=== PATIENT | female | born 1960 | race Caucasian/White ===

== ENCOUNTER 2016-06-13 14:17 | Outpatient (CLI) | payer OTHER ==
[2016-06-13 15:02] LABS: INR-International Normal Ratio 2.3; Prothrombin Time 25.5 SEC (12.0-14.7)
== END 2016-06-13 14:18 | disposition home or self-care (01) ==
LOC: MADLAB 14:17
PROVIDERS: ATTEND Nurse Practitioner
DX: Z48.812 Encounter for surgical aftercare following surgery on the circulatory system (principal); Z95.2 Presence of prosthetic heart valve
CPT/HCPCS: 36415; 85610

== ENCOUNTER 2016-08-01 10:38 | Outpatient (CLI) | payer OTHER ==
[2016-08-01 11:05] LABS: INR-International Normal Ratio 2.8; Prothrombin Time 29.1 SEC (12.0-14.7)
== END 2016-08-01 10:39 | disposition home or self-care (01) ==
LOC: MADLAB 10:38
PROVIDERS: ATTEND Nurse Practitioner
DX: Z95.2 Presence of prosthetic heart valve (principal)
CPT/HCPCS: 36415; 85610

== ENCOUNTER 2016-08-13 11:26 | Outpatient (CLI) | payer OTHER ==
[2016-08-13 12:25] LABS: Prothrombin Time 39.4 SEC (12.0-14.7)
[2016-08-13 12:34] LABS: INR-International Normal Ratio 4.2
== END 2016-08-13 11:27 | disposition home or self-care (01) ==
LOC: MADLAB 11:26
PROVIDERS: ATTEND Nurse Practitioner
DX: Z48.812 Encounter for surgical aftercare following surgery on the circulatory system (principal); Z95.2 Presence of prosthetic heart valve
CPT/HCPCS: 36415; 85610

== ENCOUNTER 2016-08-29 14:08 | Outpatient (CLI) | payer OTHER ==
[2016-08-29 14:39] LABS: Prothrombin Time 22.3 SEC (12.0-14.7)
== END 2016-08-29 14:09 | disposition home or self-care (01) ==
LOC: MADLAB 14:08
PROVIDERS: ATTEND Nurse Practitioner
DX: Z48.812 Encounter for surgical aftercare following surgery on the circulatory system (principal); Z95.2 Presence of prosthetic heart valve
CPT/HCPCS: 36415; 85610

== ENCOUNTER 2016-09-23 12:51 | Outpatient (CLI) | payer OTHER ==
[2016-09-23 13:32] LABS: INR-International Normal Ratio 1.6; Prothrombin Time 19.1 SEC (12.0-14.7)
== END 2016-09-23 12:52 | disposition home or self-care (01) ==
LOC: MADLAB 12:51
PROVIDERS: ATTEND Nurse Practitioner
DX: Z48.812 Encounter for surgical aftercare following surgery on the circulatory system (principal); Z95.2 Presence of prosthetic heart valve
CPT/HCPCS: 36415; 85610

== ENCOUNTER 2016-10-03 11:26 | Outpatient (CLI) | payer OTHER ==
[2016-10-03 11:54] LABS: INR-International Normal Ratio 1.1; Prothrombin Time 14.9 SEC (12.0-14.7)
== END 2016-10-03 11:27 | disposition home or self-care (01) ==
LOC: MADLAB 11:26
PROVIDERS: ATTEND Nurse Practitioner
DX: Z48.812 Encounter for surgical aftercare following surgery on the circulatory system (principal); Z95.2 Presence of prosthetic heart valve
CPT/HCPCS: 36415; 85610

== ENCOUNTER 2016-10-30 13:48 | Outpatient (CLI) | payer OTHER ==
[2016-10-30 14:11] LABS: INR-International Normal Ratio 3.4; Prothrombin Time 33.7 SEC (12.0-14.7)
== END 2016-10-30 13:49 | disposition home or self-care (01) ==
LOC: MADLAB 13:48
PROVIDERS: ATTEND Nurse Practitioner
DX: Z48.812 Encounter for surgical aftercare following surgery on the circulatory system (principal); Z95.2 Presence of prosthetic heart valve
CPT/HCPCS: 36415; 85610

== ENCOUNTER 2016-11-20 10:29 | Outpatient (CLI) | payer OTHER ==
[2016-11-20 11:19] LABS: INR-International Normal Ratio 2.8; Prothrombin Time 29.2 SEC (12.0-14.7)
== END 2016-11-20 10:30 | disposition home or self-care (01) ==
LOC: MADLAB 10:29
PROVIDERS: ATTEND Nurse Practitioner
DX: Z95.2 Presence of prosthetic heart valve (principal)
CPT/HCPCS: 36415; 85610

== ENCOUNTER 2016-12-18 13:08 | Outpatient (CLI) | payer OTHER ==
[2016-12-18 13:31] LABS: INR-International Normal Ratio 1.6; Prothrombin Time 19.2 SEC (12.0-14.7)
== END 2016-12-18 13:09 | disposition home or self-care (01) ==
LOC: MADLAB 13:08
PROVIDERS: ATTEND Nurse Practitioner
DX: Z95.2 Presence of prosthetic heart valve (principal)
CPT/HCPCS: 36415; 85610

== ENCOUNTER 2017-01-23 12:53 | Outpatient (CLI) | payer OTHER ==
[2017-01-23 13:14] LABS: Prothrombin Time 23.6 SEC (12.0-14.7)
== END 2017-01-23 12:54 | disposition home or self-care (01) ==
LOC: MADLAB 12:53
PROVIDERS: ATTEND Nurse Practitioner
DX: Z48.812 Encounter for surgical aftercare following surgery on the circulatory system (principal); Z95.2 Presence of prosthetic heart valve
CPT/HCPCS: 36415; 85610

== ENCOUNTER 2017-03-17 13:39 | Outpatient (CLI) | payer OTHER, SELFPAY ==
[2017-03-17 14:23] LABS: INR-International Normal Ratio 1.8; Prothrombin Time 21.8 SEC (12.0-14.7)
== END 2017-03-17 13:40 | disposition home or self-care (01) ==
LOC: MADLAB 13:39
PROVIDERS: ATTEND Nurse Practitioner
DX: Z48.812 Encounter for surgical aftercare following surgery on the circulatory system (principal); Z95.2 Presence of prosthetic heart valve
CPT/HCPCS: 36415; 85610

== ENCOUNTER 2017-05-14 13:12 | Outpatient (CLI) | payer OTHER ==
[2017-05-14 13:34] LABS: Prothrombin Time 22.9 SEC (12.0-14.7)
== END 2017-05-14 13:13 | disposition home or self-care (01) ==
LOC: MADLAB 13:12
PROVIDERS: ATTEND Nurse Practitioner
DX: Z48.812 Encounter for surgical aftercare following surgery on the circulatory system (principal); Z95.2 Presence of prosthetic heart valve
CPT/HCPCS: 36415; 85610

== ENCOUNTER 2017-06-16 13:17 | Outpatient (CLI) | payer MEDICARE ==
[2017-06-16 13:43] LABS: INR-International Normal Ratio 3.2; Prothrombin Time 33.8 SEC (12.0-14.7)
== END 2017-06-16 13:18 | disposition home or self-care (01) ==
LOC: MADLAB 13:17
PROVIDERS: ATTEND Nurse Practitioner
DX: Z48.812 Encounter for surgical aftercare following surgery on the circulatory system (principal); Z95.2 Presence of prosthetic heart valve
CPT/HCPCS: 36415; 85610

== ENCOUNTER 2017-07-15 12:55 | Outpatient (CLI) | payer MEDICARE ==
[2017-07-15 13:20] LABS: INR-International Normal Ratio 1.6; Prothrombin Time 19.6 SEC (12.0-14.7)
== END 2017-07-15 12:56 | disposition home or self-care (01) ==
LOC: MADLAB 12:55
PROVIDERS: ATTEND Nurse Practitioner
DX: Z48.812 Encounter for surgical aftercare following surgery on the circulatory system (principal); Z95.2 Presence of prosthetic heart valve
CPT/HCPCS: 36415; 85610

== ENCOUNTER 2017-07-22 11:13 | Outpatient (CLI) | payer MEDICARE ==
[2017-07-22 11:40] LABS: INR-International Normal Ratio 2.1; Prothrombin Time 24.4 SEC (12.0-14.7)
== END 2017-07-22 11:14 | disposition home or self-care (01) ==
LOC: MADLAB 11:13
PROVIDERS: ATTEND Nurse Practitioner
DX: Z48.812 Encounter for surgical aftercare following surgery on the circulatory system (principal); Z95.2 Presence of prosthetic heart valve
CPT/HCPCS: 36415; 85610

== ENCOUNTER 2017-09-13 11:55 | Emergency (ER) | payer MEDICARE ==
[~2017-09-13 11:55] MED LIST: Sodium Chloride Irrig Solution 250 ML BOT ONE
[2017-09-13] MEDS ORDERED: Lidocaine 2% w/Epinephrine 1:200K 20 ML VIAL ONE (12:41)
[2017-09-13] MEDS ORDERED: Bacitracin Zinc 1 Packet ONE (13:06)
[2017-09-13] MEDS ORDERED: Cephalexin 500 MG CAP ONE (13:07)
== END 2017-09-13 13:30 | disposition home or self-care (01) ==
LOC: MADERS 11:55
DX: S61.412A Laceration without foreign body of left hand, initial encounter (principal); E03.9 Hypothyroidism, unspecified; E78.5 Hyperlipidemia, unspecified; I10 Essential (primary) hypertension; F32.9 Major depressive disorder, single episode, unspecified; Z87.891 Personal history of nicotine dependence; Z79.82 Long term (current) use of aspirin; Z79.899 Other long term (current) drug therapy; Z79.52 Long term (current) use of systemic steroids; Z79.01 Long term (current) use of anticoagulants; W22.09XA Striking against other stationary object, initial encounter
CPT/HCPCS: 12002

== ENCOUNTER 2017-09-17 11:29 | Outpatient (CLI) | payer MEDICARE ==
[2017-09-17 11:57] LABS: INR-International Normal Ratio 2.8; Prothrombin Time 30.4 SEC (12.0-14.7)
== END 2017-09-17 11:30 | disposition home or self-care (01) ==
LOC: MADLAB 11:29
PROVIDERS: ATTEND Nurse Practitioner
DX: Z48.812 Encounter for surgical aftercare following surgery on the circulatory system (principal); Z95.2 Presence of prosthetic heart valve
CPT/HCPCS: 36415; 85610

== ENCOUNTER 2017-10-09 10:49 | Outpatient (CLI) | payer MEDICARE ==
[2017-10-09 11:09] LABS: INR-International Normal Ratio 2.8; Prothrombin Time 30.5 SEC (12.0-14.7)
== END 2017-10-09 10:50 | disposition home or self-care (01) ==
LOC: MADLAB 10:49
PROVIDERS: ATTEND Nurse Practitioner
DX: Z48.812 Encounter for surgical aftercare following surgery on the circulatory system (principal); Z95.2 Presence of prosthetic heart valve
CPT/HCPCS: 36415; 85610

== ENCOUNTER 2017-11-12 13:10 | Outpatient (CLI) | payer MEDICARE ==
[2017-11-12 13:43] LABS: INR-International Normal Ratio 2.3; Prothrombin Time 26.5 SEC (12.0-14.7)
== END 2017-11-12 13:11 | disposition home or self-care (01) ==
LOC: MADLAB 13:10
PROVIDERS: ATTEND Nurse Practitioner
DX: Z48.812 Encounter for surgical aftercare following surgery on the circulatory system (principal); Z95.2 Presence of prosthetic heart valve
CPT/HCPCS: 36415; 85610

== ENCOUNTER 2017-12-08 12:35 | Outpatient (CLI) | payer MEDICARE ==
[2017-12-08 13:07] LABS: INR-International Normal Ratio 2.5; Prothrombin Time 26.8 SEC (12.0-14.7)
== END 2017-12-08 12:36 | disposition home or self-care (01) ==
LOC: MADLAB 12:35
PROVIDERS: ATTEND Nurse Practitioner
DX: Z48.812 Encounter for surgical aftercare following surgery on the circulatory system (principal); Z95.2 Presence of prosthetic heart valve
CPT/HCPCS: 36415; 85610

== ENCOUNTER 2017-12-23 11:09 | Outpatient (CLI) | payer MEDICARE ==
[2017-12-23 11:34] LABS: INR-International Normal Ratio 3.2
== END 2017-12-23 11:10 | disposition home or self-care (01) ==
LOC: MADLAB 11:09
PROVIDERS: ATTEND Nurse Practitioner
DX: Z51.81 Encounter for therapeutic drug level monitoring (principal); Z95.2 Presence of prosthetic heart valve; Z79.01 Long term (current) use of anticoagulants
CPT/HCPCS: 36415; 85610

== ENCOUNTER 2018-01-29 11:01 | Outpatient (CLI) | payer MEDICARE ==
[2018-01-29 11:40] LABS: INR-International Normal Ratio 2.5; Prothrombin Time 26.8 SEC (12.0-14.7)
== END 2018-01-29 11:02 | disposition home or self-care (01) ==
LOC: MADLAB 11:01
PROVIDERS: ATTEND Nurse Practitioner
DX: Z48.812 Encounter for surgical aftercare following surgery on the circulatory system (principal); Z95.2 Presence of prosthetic heart valve
CPT/HCPCS: 36415; 85610

== ENCOUNTER 2018-02-25 12:00 | Outpatient (CLI) | payer MEDICARE ==
[2018-02-25 13:24] LABS: INR-International Normal Ratio 3.4; Prothrombin Time 34.1 SEC (12.0-14.7)
== END 2018-02-25 12:01 | disposition home or self-care (01) ==
LOC: MADLAB 12:00
PROVIDERS: ATTEND Nurse Practitioner
DX: Z51.81 Encounter for therapeutic drug level monitoring (principal); Z95.2 Presence of prosthetic heart valve; Z79.01 Long term (current) use of anticoagulants
CPT/HCPCS: 36415; 85610

== ENCOUNTER 2018-03-09 11:44 | Outpatient (CLI) | payer MEDICARE ==
[2018-03-09 11:59] LABS: INR-International Normal Ratio 3.1; Prothrombin Time 31.6 SEC (12.0-14.7)
== END 2018-03-09 11:45 | disposition home or self-care (01) ==
LOC: MADLAB 11:44
PROVIDERS: ATTEND Nurse Practitioner
DX: Z51.81 Encounter for therapeutic drug level monitoring (principal); Z95.2 Presence of prosthetic heart valve; Z79.01 Long term (current) use of anticoagulants
CPT/HCPCS: 36415; 85610

== ENCOUNTER 2018-03-27 17:32 | Emergency (ER) | payer MEDICARE ==
[~2018-03-27 17:32] MED LIST changes: +Sodium Chloride 0.9% 1,000 ML BAG ONE; -Sodium Chloride Irrig Solution 250 ML BOT ONE
[2018-03-27 18:14] LABS: Hemoglobin 9.3 g/dL (12.0-16.0)
[2018-03-27 18:21] LABS: INR-International Normal Ratio 2.5
== END 2018-03-27 19:59 | disposition home or self-care (01) ==
LOC: MADERS 17:32
DX: K62.5 Hemorrhage of anus and rectum (principal); D64.9 Anemia, unspecified; E78.5 Hyperlipidemia, unspecified; I10 Essential (primary) hypertension; Z87.891 Personal history of nicotine dependence; Z79.899 Other long term (current) drug therapy; Z79.01 Long term (current) use of anticoagulants; Z79.82 Long term (current) use of aspirin
CPT/HCPCS: 36415; 82274; 85014; 85018; 85610; 96360; 96361; J7050

== ENCOUNTER 2018-04-27 13:15 | Outpatient (CLI) | payer MEDICARE ==
[2018-04-27 13:43] LABS: INR-International Normal Ratio 2.7; Prothrombin Time 28.6 SEC (12.0-14.7)
== END 2018-04-27 13:16 | disposition home or self-care (01) ==
LOC: MADLAB 13:15
PROVIDERS: ATTEND Nurse Practitioner
DX: Z51.81 Encounter for therapeutic drug level monitoring (principal); Z95.2 Presence of prosthetic heart valve; Z79.01 Long term (current) use of anticoagulants
CPT/HCPCS: 36415; 85610

== ENCOUNTER 2018-05-11 13:02 | Outpatient (CLI) | payer MEDICARE ==
[2018-05-11 13:24] LABS: INR-International Normal Ratio 2.8; Prothrombin Time 29.6 SEC (12.0-14.7)
== END 2018-05-11 13:03 | disposition home or self-care (01) ==
LOC: MADLAB 13:02
PROVIDERS: ATTEND Nurse Practitioner
DX: Z51.81 Encounter for therapeutic drug level monitoring (principal); Z95.2 Presence of prosthetic heart valve; Z79.01 Long term (current) use of anticoagulants
CPT/HCPCS: 36415; 85610

== ENCOUNTER 2018-07-28 13:25 | Outpatient (CLI) | payer MEDICARE ==
[2018-07-28 13:59] LABS: Prothrombin Time 51.9 SEC (12.0-14.7)
[2018-07-28 14:46] LABS: INR-International Normal Ratio 5.8
== END 2018-07-28 13:26 | disposition home or self-care (01) ==
LOC: MADLAB 13:25
PROVIDERS: ATTEND Nurse Practitioner
DX: Z51.81 Encounter for therapeutic drug level monitoring (principal); Z95.2 Presence of prosthetic heart valve; Z79.01 Long term (current) use of anticoagulants
CPT/HCPCS: 36415; 85610

== ENCOUNTER 2018-08-04 11:04 | Outpatient (CLI) | payer MEDICARE ==
[2018-08-04 11:49] LABS: INR-International Normal Ratio 1.9; Prothrombin Time 21.7 SEC (12.0-14.7)
== END 2018-08-04 11:05 | disposition home or self-care (01) ==
LOC: MADLAB 11:04
PROVIDERS: ATTEND Nurse Practitioner
DX: Z51.81 Encounter for therapeutic drug level monitoring (principal); Z95.2 Presence of prosthetic heart valve; Z79.01 Long term (current) use of anticoagulants
CPT/HCPCS: 36415; 85610

== ENCOUNTER 2018-08-24 13:14 | Outpatient (CLI) | payer MEDICARE ==
[2018-08-24 13:41] LABS: Prothrombin Time 71.4 SEC (12.0-14.7)
[2018-08-24 14:14] LABS: INR-International Normal Ratio 8.7
== END 2018-08-24 13:15 | disposition home or self-care (01) ==
LOC: MADLAB 13:14
PROVIDERS: ATTEND Nurse Practitioner Family
DX: Z51.81 Encounter for therapeutic drug level monitoring (principal); Z95.2 Presence of prosthetic heart valve; Z79.01 Long term (current) use of anticoagulants
CPT/HCPCS: 36415; 85610

== ENCOUNTER 2018-08-25 16:26 | Emergency (ER) | payer MEDICARE ==
[~2018-08-25 16:26] MED LIST changes: +Sodium Chloride 0.9% 100 ML BAG ONE
[2018-08-25 17:15] LABS: Prothrombin Time 50.2 SEC (12.0-14.7)
--- NOTE | 2018-08-25 17:23 | RAD ---
FEXAM: Portable chest PROVIDED CLINICAL HISTORY: Dyspnea COMPARISON: 05/25/2009 FINDINGS: Cardiac and mediastinal silhouette is within normal limits. No focal consolidation, pleural fluid or pneumothorax evident. Median sternotomy changes are noted. Prosthetic cardiac valve noted. IMPRESSION: No evidence for an acute cardiopulmonary process.
[2018-08-25 17:26] LABS: ALT (SGPT) Less than 7 U/L (8-55); AST (SGOT) 9 U/L (5-34); Albumin 3.7 g/dL (3.5-5.0); Alkaline Phosphatase 60 U/L (40-150); Anion Gap 16 mmol/L (10-20); BUN (Urea Nitrogen) 44 mg/dL (9.8-20.1); Bilirubin, Total 0.4 mg/dL (0.2-1.2); Calc. Creatinine Clearance 0 mL/min (70-130); Calcium 9.8 mg/dL (7.8-10.44); Carbon Dioxide 24 mmol/L (22-29); Chloride 103 mmol/L (98-107); Estimated GFR-MDRD 22; Globulin 2.7 g/dL (2.4-3.5); Glucose 126 mg/dL (70-105); Potassium 4.3 mmol/L (3.5-5.1); Protein, Total 6.4 g/dL (6.0-8.3); Sodium 139 mmol/L (136-145)
[2018-08-25 17:35] LABS: INR-International Normal Ratio 5.6
[2018-08-25 17:44] LABS: CKMB 1.4 ng/mL (0-6.6)
[2018-08-25 17:46] LABS: #Basophils 0.1 thou/uL (0.0-0.2); #Eosinphils 0.1 thou/uL (0.0-0.7); #Lymphocytes 1.4 thou/uL (1.20-3.40); #Monocytes 0.7 thou/uL (0.11-0.59); #Neutrophils 6.1 thou/uL (1.40-6.50); %Basophils 1.5 % (0.0-1.0); %Eosinophils 1.6 % (0.0-10.0); %Lymphocytes 16.1 % (21.0-51.0); %Monocytes 8.4 % (0.0-10.0); %Neutrophils 72.5 % (42.0-75.0); Hemoglobin 6.2 g/dL (12.0-16.0); Mean Corpuscular HGB CONC 29.2 g/dL (32.0-36.0); Mean Corpuscular Hemoglobin 22.6 pg (27.0-31.0); Mean Corpuscular Volume 77.4 fL (78.0-98.0); Mean Platelet Volume 8.8 fL (7.4-10.4); Platelet Count 313 thou/uL (130-400); RBC Distribution Width 19.5 % (11.5-14.5); Red Blood Cell (RBC) Count 2.75 mill/uL (4.20-5.40); White Blood Cell (WBC) Count 8.4 thou/uL (4.8-10.8)
[2018-08-25 17:47] LABS: Hypochromia MODERATE=16-30 cells (100X) (0-5/hpf); MDiff Complete? YES; Polychromasia SLIGHT = 2-3 cells (100X) (0-2/hpf)
[2018-08-25] MEDS ORDERED: Phytonadione 10 MG/ML AMP ONE (19:36)
[2018-08-25] MEDS ORDERED: Pantoprazole 40 MG VIAL ONE (19:36)
[2018-08-25 19:57] LABS: Bilirubin Negative (Negative); Blood, Urine Trace (Negative); Clarity Clear (Clear); Glucose, Urine (Dipstick) Negative (Negative); Leukocyte Negative (Negative); Nitrite Negative (Negative); Protein, Urine (Dipstick) Negative (Neg-Trace); Urobilinogen 0.2 mg/dL (0.2-1.0); pH, Urine 5.5 (5.0-9.0)
[2018-08-25 20:03] LABS: Bacteria/HPF None Seen HPF (None Seen); RBC/HPF 0-3 HPF (0-3); Squamous Epithelial 0-3 HPF (0-3); WBC/HPF 0-3 HPF (0-3)
== END 2018-08-25 20:22 | disposition short-term general hospital (02) ==
LOC: MADERS 16:26
DX: D64.9 Anemia, unspecified (principal); K92.2 Gastrointestinal hemorrhage, unspecified; E03.9 Hypothyroidism, unspecified; I10 Essential (primary) hypertension; F32.9 Major depressive disorder, single episode, unspecified; Z87.891 Personal history of nicotine dependence
CPT/HCPCS: 36430; 71045; 80053; 82274; 82553; 83880; 84484; 85025; 85610; 86850; 86900; 86901; 86920; 93005; 96361; 96372; 96374; 99291; P9016; 36415; 81003; 81015; C9113; J3430; J7050

== ENCOUNTER 2018-08-31 13:30 | Outpatient (CLI) | payer MEDICARE ==
[2018-08-31 14:05] LABS: INR-International Normal Ratio 1.6; Prothrombin Time 19.2 SEC (12.0-14.7)
== END 2018-08-31 13:31 | disposition home or self-care (01) ==
LOC: MADLAB 13:30
PROVIDERS: ATTEND Nurse Practitioner Family
DX: Z51.81 Encounter for therapeutic drug level monitoring (principal); Z95.2 Presence of prosthetic heart valve; Z79.01 Long term (current) use of anticoagulants
CPT/HCPCS: 36415; 85610

== ENCOUNTER 2018-09-21 13:21 | Outpatient (CLI) | payer MEDICARE ==
[2018-09-21 14:27] LABS: Prothrombin Time 47.9 SEC (12.0-14.7)
[2018-09-21 14:28] LABS: INR-International Normal Ratio 5.2
== END 2018-09-21 13:22 | disposition home or self-care (01) ==
LOC: MADLAB 13:21
PROVIDERS: ATTEND Nurse Practitioner Family
DX: Z51.81 Encounter for therapeutic drug level monitoring (principal); Z95.2 Presence of prosthetic heart valve; Z79.01 Long term (current) use of anticoagulants
CPT/HCPCS: 36415; 85610

== ENCOUNTER 2018-10-01 13:15 | Outpatient (CLI) | payer MEDICARE ==
[2018-10-01 13:43] LABS: INR-International Normal Ratio 3.5; Prothrombin Time 34.7 SEC (12.0-14.7)
== END 2018-10-01 13:16 | disposition home or self-care (01) ==
LOC: MADLAB 13:15
PROVIDERS: ATTEND Nurse Practitioner Family
DX: Z51.81 Encounter for therapeutic drug level monitoring (principal); Z95.2 Presence of prosthetic heart valve; Z79.01 Long term (current) use of anticoagulants
CPT/HCPCS: 36415; 85610

== ENCOUNTER 2018-10-15 13:30 | Outpatient (CLI) | payer MEDICARE ==
[2018-10-15 13:55] LABS: INR-International Normal Ratio 3.1; Prothrombin Time 32.3 SEC (12.0-14.7)
== END 2018-10-15 13:31 | disposition home or self-care (01) ==
LOC: MADLAB 13:30
PROVIDERS: ATTEND Nurse Practitioner Family
DX: Z51.81 Encounter for therapeutic drug level monitoring (principal); Z95.2 Presence of prosthetic heart valve; Z79.01 Long term (current) use of anticoagulants
CPT/HCPCS: 36415; 85610

== ENCOUNTER 2018-11-03 13:14 | Outpatient (CLI) | payer MEDICARE ==
[2018-11-03 13:51] LABS: INR-International Normal Ratio 3.9; Prothrombin Time 38.1 SEC (12.0-14.7)
== END 2018-11-03 13:15 | disposition home or self-care (01) ==
LOC: MADLAB 13:14
PROVIDERS: ATTEND Nurse Practitioner Family
DX: Z48.812 Encounter for surgical aftercare following surgery on the circulatory system (principal); Z95.2 Presence of prosthetic heart valve
CPT/HCPCS: 36415; 85610

== ENCOUNTER 2018-12-09 13:11 | Outpatient (CLI) | payer MEDICARE ==
[2018-12-09 13:49] LABS: INR-International Normal Ratio 3.5; Prothrombin Time 34.9 SEC (12.0-14.7)
== END 2018-12-09 13:12 | disposition home or self-care (01) ==
LOC: MADLAB 13:11
PROVIDERS: ATTEND Nurse Practitioner Family
DX: Z48.812 Encounter for surgical aftercare following surgery on the circulatory system (principal); Z95.2 Presence of prosthetic heart valve
CPT/HCPCS: 36415; 85610

== ENCOUNTER 2019-01-13 13:25 | Outpatient (CLI) | payer MEDICARE ==
[2019-01-13 13:46] LABS: INR-International Normal Ratio 2.5
== END 2019-01-13 13:26 | disposition home or self-care (01) ==
LOC: MADLAB 13:25
PROVIDERS: ATTEND Internal Medicine Hematology & Oncology
DX: Z48.812 Encounter for surgical aftercare following surgery on the circulatory system (principal); Z95.2 Presence of prosthetic heart valve
CPT/HCPCS: 36415; 85610

== ENCOUNTER 2019-02-01 12:47 | Outpatient (CLI) | payer MEDICARE ==
[2019-02-01 13:29] LABS: INR-International Normal Ratio 3.8
== END 2019-02-01 12:48 | disposition home or self-care (01) ==
LOC: MADLAB 12:47
PROVIDERS: ATTEND Internal Medicine Hematology & Oncology
DX: Z48.812 Encounter for surgical aftercare following surgery on the circulatory system (principal); Z95.2 Presence of prosthetic heart valve
CPT/HCPCS: 36415; 85610

== ENCOUNTER 2019-02-09 12:50 | Outpatient (CLI) | payer MEDICARE ==
[2019-02-09 13:36] LABS: INR-International Normal Ratio 1.8; Prothrombin Time 20.8 SEC (12.0-14.7)
== END 2019-02-09 12:51 | disposition home or self-care (01) ==
LOC: MADLAB 12:50
PROVIDERS: ATTEND Internal Medicine Hematology & Oncology
DX: Z48.812 Encounter for surgical aftercare following surgery on the circulatory system (principal)
CPT/HCPCS: 36415; 85610

== ENCOUNTER 2019-03-01 12:56 | Outpatient (CLI) | payer MEDICARE ==
[2019-03-01 13:31] LABS: INR-International Normal Ratio 2.7; Prothrombin Time 28.8 SEC (12.0-14.7)
== END 2019-03-01 12:57 | disposition home or self-care (01) ==
LOC: MADLAB 12:56
PROVIDERS: ATTEND Internal Medicine Hematology & Oncology
DX: Z48.812 Encounter for surgical aftercare following surgery on the circulatory system (principal); Z95.2 Presence of prosthetic heart valve
CPT/HCPCS: 85610

== ENCOUNTER 2019-03-31 10:02 | Outpatient (CLI) | payer MEDICARE ==
[2019-03-31 11:03] LABS: INR-International Normal Ratio 3.3; Prothrombin Time 33.5 SEC (12.0-14.7)
== END 2019-03-31 10:03 | disposition home or self-care (01) ==
LOC: MADLAB 10:02
PROVIDERS: ATTEND Internal Medicine Hematology & Oncology
DX: Z48.812 Encounter for surgical aftercare following surgery on the circulatory system (principal); Z95.2 Presence of prosthetic heart valve
CPT/HCPCS: 36415; 85610

== ENCOUNTER 2019-06-14 12:33 | Outpatient (CLI) | payer MEDICARE ==
[2019-06-14 13:09] LABS: Prothrombin Time 40.1 SEC (12.0-14.7)
[2019-06-14 13:12] LABS: INR-International Normal Ratio 4.2
== END 2019-06-14 12:34 | disposition home or self-care (01) ==
LOC: MADLAB 12:33
PROVIDERS: ATTEND Internal Medicine Hematology & Oncology
DX: Z48.812 Encounter for surgical aftercare following surgery on the circulatory system (principal); Z95.2 Presence of prosthetic heart valve
CPT/HCPCS: 36415; 85610

== ENCOUNTER 2019-07-05 13:34 | Emergency (ER) | payer MEDICARE ==
[2019-07-05] MEDS ORDERED: Phytonadione 10 MG/ML AMP ONE (14:43)
[2019-07-05 14:45] LABS: PTT 82.4 SEC (22.9-36.1); Prothrombin Time 90.5 SEC (12.0-14.7)
[2019-07-05 14:47] LABS: #Basophils 0.1 thou/uL (0.0-0.2); #Eosinphils 0.2 thou/uL (0.0-0.7); #Lymphocytes 2.2 thou/uL (1.20-3.40); #Monocytes 0.4 thou/uL (0.11-0.59); #Neutrophils 3.9 thou/uL (1.40-6.50); %Eosinophils 2.8 % (0.0-10.0); %Lymphocytes 32.8 % (21.0-51.0); %Monocytes 6.3 % (0.0-10.0); %Neutrophils 57.2 % (42.0-75.0); Anisocytosis SLIGHT = 6-15 cells (100X) (0-5/hpf); Elliptocytes SLIGHT = 2-5 cells (100X) (0-1/hpf); Hemoglobin 9.3 g/dL (12.0-16.0); Hypochromia SLIGHT = 6-15 cells (100X) (0-5/hpf); MDiff Complete? YES; Mean Corpuscular HGB CONC 29.1 g/dL (32.0-36.0); Mean Corpuscular Hemoglobin 26.3 pg (27.0-31.0); Mean Corpuscular Volume 90.5 fL (78.0-98.0); Mean Platelet Volume 9.7 fL (7.4-10.4); Platelet Count 247 thou/uL (130-400); Poikilocytosis SLIGHT = 6-15 cells (100X) (0-5/hpf); RBC Distribution Width 18.4 % (11.5-14.5); Red Blood Cell (RBC) Count 3.52 mill/uL (4.20-5.40); Target Cells SLIGHT = 2-5 cells (100X) (0-1/hpf); Tear Drops SLIGHT = 2-5 cells (100X) (0-1/hpf); White Blood Cell (WBC) Count 6.9 thou/uL (4.8-10.8)
[2019-07-05 14:53] LABS: ALT (SGPT) 7 U/L (8-55); AST (SGOT) 13 U/L (5-34); Albumin 3.4 g/dL (3.5-5.0); Alkaline Phosphatase 50 U/L (40-110); Anion Gap 14 mmol/L (10-20); BUN (Urea Nitrogen) 36 mg/dL (9.8-20.1); Bilirubin, Total 0.5 mg/dL (0.2-1.2); Calc. Creatinine Clearance 0 mL/min (70-130); Carbon Dioxide 24 mmol/L (22-29); Chloride 107 mmol/L (98-107); Estimated GFR-MDRD 20; Globulin 2.5 g/dL (2.4-3.5); Glucose 92 mg/dL (70-105); Potassium 4.2 mmol/L (3.5-5.1); Protein, Total 5.9 g/dL (6.0-8.3); Sodium 141 mmol/L (136-145)
== END 2019-07-05 15:38 | disposition home or self-care (01) ==
LOC: MADERS 13:34
DX: T45.511A Poisoning by anticoagulants, accidental (unintentional), initial encounter (principal); N17.9 Acute kidney failure, unspecified; D64.89 Other specified anemias; I10 Essential (primary) hypertension; E03.9 Hypothyroidism, unspecified; F32.9 Major depressive disorder, single episode, unspecified; E78.00 Pure hypercholesterolemia, unspecified; Z87.891 Personal history of nicotine dependence; Z79.899 Other long term (current) drug therapy; Z79.01 Long term (current) use of anticoagulants
CPT/HCPCS: 36415; 80053; 85025; 85610; 85730; 99284; J3430

== ENCOUNTER 2019-07-06 09:42 | Outpatient (CLI) | payer MEDICARE ==
[2019-07-06 10:19] LABS: INR-International Normal Ratio 1.9; Prothrombin Time 21.7 SEC (12.0-14.7)
== END 2019-07-06 09:43 | disposition home or self-care (01) ==
LOC: MADLAB 09:42
PROVIDERS: ATTEND Internal Medicine Hematology & Oncology
DX: Z51.81 Encounter for therapeutic drug level monitoring (principal); Z95.2 Presence of prosthetic heart valve; Z79.01 Long term (current) use of anticoagulants
CPT/HCPCS: 36415; 85610

== ENCOUNTER 2019-07-12 13:51 | Outpatient (CLI) | payer MEDICARE ==
[2019-07-12 14:17] LABS: INR-International Normal Ratio 2.8; Prothrombin Time 29.1 SEC (12.0-14.7)
== END 2019-07-12 13:52 | disposition home or self-care (01) ==
LOC: MADLAB 13:51
PROVIDERS: ATTEND Internal Medicine Hematology & Oncology
DX: Z48.812 Encounter for surgical aftercare following surgery on the circulatory system (principal); Z95.2 Presence of prosthetic heart valve
CPT/HCPCS: 36415; 85610

== ENCOUNTER 2019-07-21 13:35 | Outpatient (CLI) | payer MEDICARE ==
[2019-07-21 14:10] LABS: INR-International Normal Ratio 2.1
== END 2019-07-21 13:36 | disposition home or self-care (01) ==
LOC: MADLAB 13:35
PROVIDERS: ATTEND Internal Medicine Hematology & Oncology
DX: Z51.81 Encounter for therapeutic drug level monitoring (principal); Z95.2 Presence of prosthetic heart valve; Z79.01 Long term (current) use of anticoagulants
CPT/HCPCS: 36415; 85610

== ENCOUNTER 2019-08-11 12:35 | Outpatient (CLI) | payer MEDICARE ==
[2019-08-11 12:58] LABS: Prothrombin Time 13.6 SEC (12.0-14.7)
== END 2019-08-11 12:36 | disposition home or self-care (01) ==
LOC: MADLAB 12:35
PROVIDERS: ATTEND Internal Medicine Hematology & Oncology
DX: Z48.812 Encounter for surgical aftercare following surgery on the circulatory system (principal); Z95.2 Presence of prosthetic heart valve
CPT/HCPCS: 36415; 85610

== ENCOUNTER 2019-10-19 09:30 | Outpatient (CLI) | payer MEDICARE ==
[2019-10-19 10:06] LABS: INR-International Normal Ratio 2.8; Prothrombin Time 28.9 sec (12.0-14.7)
== END 2019-10-19 09:31 | disposition home or self-care (01) ==
LOC: MADLAB 09:30
PROVIDERS: ATTEND Internal Medicine Hematology & Oncology
DX: Z48.812 Encounter for surgical aftercare following surgery on the circulatory system (principal); Z95.2 Presence of prosthetic heart valve
CPT/HCPCS: 36415; 85610

== ENCOUNTER 2019-11-16 14:09 | Outpatient (CLI) | payer MEDICARE ==
[2019-11-16 14:32] LABS: INR-International Normal Ratio 1.6; Prothrombin Time 19.3 sec (12.0-14.7)
== END 2019-11-16 14:10 | disposition home or self-care (01) ==
LOC: MADLAB 14:09
PROVIDERS: ATTEND Internal Medicine Cardiovascular Disease
DX: Z48.812 Encounter for surgical aftercare following surgery on the circulatory system (principal); Z95.2 Presence of prosthetic heart valve
CPT/HCPCS: 36415; 85610

== ENCOUNTER 2019-11-30 13:22 | Outpatient (CLI) | payer MEDICARE ==
[2019-11-30 13:48] LABS: INR-International Normal Ratio 1.6; Prothrombin Time 19.1 sec (12.0-14.7)
== END 2019-11-30 13:23 | disposition home or self-care (01) ==
LOC: MADLAB 13:22
PROVIDERS: ATTEND Internal Medicine Cardiovascular Disease
DX: Z48.812 Encounter for surgical aftercare following surgery on the circulatory system (principal); Z95.2 Presence of prosthetic heart valve
CPT/HCPCS: 36415; 85610

== ENCOUNTER 2019-12-06 13:13 | Outpatient (CLI) | payer MEDICARE ==
[2019-12-06 13:46] LABS: Prothrombin Time 22.7 sec (12.0-14.7)
== END 2019-12-06 13:14 | disposition home or self-care (01) ==
LOC: MADLABBHPM 13:13
PROVIDERS: ATTEND Internal Medicine Cardiovascular Disease
DX: Z48.812 Encounter for surgical aftercare following surgery on the circulatory system (principal); Z95.2 Presence of prosthetic heart valve
CPT/HCPCS: 36415; 85610

== ENCOUNTER 2020-01-18 12:20 | Outpatient (CLI) | payer MEDICARE ==
[2020-01-18 12:46] LABS: INR-International Normal Ratio 2.3; Prothrombin Time 24.9 sec (12.0-14.7)
== END 2020-01-18 12:21 | disposition home or self-care (01) ==
LOC: MADLAB 12:20
PROVIDERS: ATTEND Internal Medicine Cardiovascular Disease
DX: Z48.812 Encounter for surgical aftercare following surgery on the circulatory system (principal); Z95.2 Presence of prosthetic heart valve
CPT/HCPCS: 36415; 85610

== ENCOUNTER 2020-02-21 12:50 | Outpatient (CLI) | payer MEDICARE ==
[2020-02-21 13:17] LABS: INR-International Normal Ratio 1.6; Prothrombin Time 18.9 sec (12.0-14.7)
== END 2020-02-21 12:51 | disposition home or self-care (01) ==
LOC: MADLAB 12:50
PROVIDERS: ATTEND Internal Medicine Cardiovascular Disease
DX: Z48.812 Encounter for surgical aftercare following surgery on the circulatory system (principal); Z95.2 Presence of prosthetic heart valve
CPT/HCPCS: 36415; 85610

== ENCOUNTER 2020-04-03 12:29 | Emergency (ER) | payer MEDICARE ==
[~2020-04-03 12:29] MED LIST changes: -Sodium Chloride 0.9% 100 ML BAG ONE
[2020-04-03] MEDS ORDERED: Ondansetron ODT 4 MG TAB ONE (12:56)
[2020-04-03 13:18] LABS: #Basophils 0.1 thou/uL (0.0-0.2); #Eosinphils 0.2 thou/uL (0.0-0.7); #Monocytes 0.8 thou/uL (0.11-0.59); #Neutrophils 6.4 thou/uL (1.40-6.50); %Basophils 0.9 % (0.0-1.0); %Eosinophils 1.5 % (0.0-10.0); %Lymphocytes 28.5 % (21.0-51.0); %Monocytes 7.7 % (0.0-10.0); %Neutrophils 61.5 % (42.0-75.0); Hemoglobin 11.2 g/dL (12.0-16.0); Mean Corpuscular HGB CONC 29.4 g/dL (32.0-36.0); Mean Corpuscular Hemoglobin 25.5 pg (27.0-31.0); Mean Corpuscular Volume 86.8 fL (78.0-98.0); Mean Platelet Volume 9.5 fL (7.4-10.4); Platelet Count 277 thou/uL (130-400); RBC Distribution Width 15.6 % (11.5-14.5); Red Blood Cell (RBC) Count 4.39 mill/uL (4.20-5.40); White Blood Cell (WBC) Count 10.4 thou/uL (4.8-10.8)
[2020-04-03 13:24] LABS: INR-International Normal Ratio 1.7; Prothrombin Time 20.1 sec (12.0-14.7)
[2020-04-03 13:33] LABS: ALT (SGPT) 25 U/L (8-55); AST (SGOT) 53 U/L (5-34); Albumin 3.7 g/dL (3.5-5.0); Alkaline Phosphatase 60 U/L (40-110); Anion Gap 15 mmol/L (10-20); BUN (Urea Nitrogen) 39 mg/dL (9.8-20.1); Bilirubin, Total 0.6 mg/dL (0.2-1.2); Calc. Creatinine Clearance 0 mL/min (70-130); Calcium 9.6 mg/dL (7.8-10.44); Carbon Dioxide 24 mmol/L (22-29); Chloride 105 mmol/L (98-107); Estimated GFR-MDRD 19; Globulin 2.9 g/dL (2.4-3.5); Glucose 133 mg/dL (70-105); Potassium 4.1 mmol/L (3.5-5.1); Protein, Total 6.6 g/dL (6.0-8.3); Sodium 140 mmol/L (136-145)
[2020-04-03 13:58] LABS: CKMB 5.9 ng/mL (0-6.6)
[2020-04-03] MEDS ORDERED: Ondansetron PF 4 MG/2 ML Vial ONE (14:28)
== END 2020-04-03 16:45 | disposition home or self-care (01) ==
LOC: MADERS 12:29
DX: R42 Dizziness and giddiness (principal); E03.9 Hypothyroidism, unspecified; E78.00 Pure hypercholesterolemia, unspecified; I10 Essential (primary) hypertension; F32.9 Major depressive disorder, single episode, unspecified; Z79.01 Long term (current) use of anticoagulants; Z79.899 Other long term (current) drug therapy
CPT/HCPCS: 80053; 82553; 84484; 85025; 85610; 93005; 96374; J2405; J7050; Q0162

== ENCOUNTER 2020-04-17 14:29 | Outpatient (CLI) | payer MEDICARE ==
[2020-04-17 14:54] LABS: INR-International Normal Ratio 1.8; Prothrombin Time 21.6 sec (12.0-14.7)
== END 2020-04-17 14:30 | disposition home or self-care (01) ==
LOC: MADLAB 14:29
PROVIDERS: ATTEND Internal Medicine Cardiovascular Disease
DX: Z51.81 Encounter for therapeutic drug level monitoring (principal); Z95.2 Presence of prosthetic heart valve; Z79.01 Long term (current) use of anticoagulants
CPT/HCPCS: 36415; 85610

== ENCOUNTER 2020-05-16 12:50 | Outpatient (CLI) | payer MEDICARE ==
[2020-05-16 13:14] LABS: INR-International Normal Ratio 2.5; Prothrombin Time 27.7 sec (12.0-14.7)
== END 2020-05-16 12:51 | disposition home or self-care (01) ==
LOC: MADLAB 12:50
PROVIDERS: ATTEND Internal Medicine Cardiovascular Disease
DX: Z48.812 Encounter for surgical aftercare following surgery on the circulatory system (principal); Z95.2 Presence of prosthetic heart valve
CPT/HCPCS: 36415; 85610

== ENCOUNTER 2020-05-30 14:38 | Outpatient (CLI) | payer MEDICARE ==
[2020-05-30 15:04] LABS: INR-International Normal Ratio 2.4; Prothrombin Time 26.5 sec (12.0-14.7)
== END 2020-05-30 14:39 | disposition home or self-care (01) ==
LOC: MADLAB 14:38
PROVIDERS: ATTEND Internal Medicine Cardiovascular Disease
DX: Z48.812 Encounter for surgical aftercare following surgery on the circulatory system (principal); Z95.2 Presence of prosthetic heart valve
CPT/HCPCS: 36415; 85610

== ENCOUNTER 2020-06-28 11:58 | Outpatient (CLI) | payer OTHER ==
[2020-06-28 12:30] LABS: INR-International Normal Ratio 2.5; Prothrombin Time 27.5 sec (12.0-14.7)
== END 2020-06-28 11:59 | disposition home or self-care (01) ==
LOC: MADLAB 11:58
DX: Z48.812 Encounter for surgical aftercare following surgery on the circulatory system (principal); Z95.2 Presence of prosthetic heart valve
CPT/HCPCS: 36415; 85610

== ENCOUNTER 2020-07-17 10:15 | Emergency (ER) | payer MEDICARE, OTHER ==
[~2020-07-17 10:15] MED LIST changes: +Sodium Chloride 0.9% 100 ML BAG ONE; +Sodium Chloride 0.9% 500 ML BAG ONE
[2020-07-17] MEDS ORDERED: Sulfameth/Trimethoprim DS 800-160mg TAB ONE (11:06)
[2020-07-17 11:14] LABS: ALT (SGPT) 164 U/L (8-55); AST (SGOT) 265 U/L (5-34); Alkaline Phosphatase 77 U/L (40-110); Anion Gap 17 mmol/L (10-20); BUN (Urea Nitrogen) 48 mg/dL (9.8-20.1); Bilirubin, Total 1.2 mg/dL (0.2-1.2); Calc. Creatinine Clearance 0 mL/min (70-130); Calcium 9.4 mg/dL (7.8-10.44); Carbon Dioxide 22 mmol/L (22-29); Chloride 94 mmol/L (98-107); Globulin 3.2 g/dL (2.4-3.5); Glucose 125 mg/dL (70-105); Potassium 4.1 mmol/L (3.5-5.1); Protein, Total 6.2 g/dL (6.0-8.3); Sodium 129 mmol/L (136-145)
[2020-07-17 11:25] LABS: Anisocytosis SLIGHT = 6-15 cells (100X) (0-5/hpf); Band 6 % (5-11); Hemoglobin 10.8 g/dL (12.0-16.0); Hypochromia SLIGHT = 6-15 cells (100X) (0-5/hpf); Lymphocytes 10 % (21-51); MDiff Complete? YES; Mean Corpuscular HGB CONC 31.9 g/dL (32.0-36.0); Mean Corpuscular Volume 81.6 fL (78.0-98.0); Mean Platelet Volume 9.8 fL (7.4-10.4); Monocytes 2 % (0-10); Neutrophil 82 % (42-75); Platelet Count 278 thou/uL (130-400); Platelet Morphology Comment Appears Adequate; RBC Distribution Width 16.8 % (11.5-14.5); Red Blood Cell (RBC) Count 4.14 mill/uL (4.20-5.40); White Blood Cell (WBC) Count 13.3 thou/uL (4.8-10.8)
[2020-07-17] MEDS ORDERED: Sodium Chloride 0.9% 250 ML 250 ML ONE (11:32)
[2020-07-17 12:32] LABS: Bilirubin Small (Negative); Blood, Urine Large (Negative); Clarity Slightly Cloudy (Clear); Glucose, Urine (Dipstick) Negative (Negative); Ketone, Urine Negative (Negative); Leukocyte Small (Negative); Nitrite Negative (Negative); Protein, Urine (Dipstick) 30 mg/dL (Neg-Trace); Specific Gravity, Urine 1.015 (1.005-1.030)
[2020-07-17 12:38] LABS: Bacteria/HPF 2+ HPF (None Seen)
[2020-07-17] MEDS ORDERED: Acetaminophen 500 MG TAB ONE (19:01)
[2020-07-17 19:39] LABS: Anion Gap 15 mmol/L (10-20); BUN (Urea Nitrogen) 38 mg/dL (9.8-20.1); CK (CPK) 4999 U/L (29-168); Calc. Creatinine Clearance 0 mL/min (70-130); Calcium 8.2 mg/dL (7.8-10.44); Carbon Dioxide 18 mmol/L (22-29); Chloride 103 mmol/L (98-107); Glucose 70 mg/dL (70-105); Potassium 3.7 mmol/L (3.5-5.1); Sodium 132 mmol/L (136-145)
[2020-07-17] MEDS ORDERED: Cefepime 1 GM VIAL ONE (20:44)
[2020-07-17] MEDS ORDERED: Pantoprazole 40 MG VIAL ONE (20:48)
[2020-07-17] MEDS ORDERED: Norepinephrine 4 MG/4 ML VIAL ONE ×2 (21:23→21:25)
--- NOTE | 2020-07-17 22:23 | RAD ---
Chest AP view INDICATION: Status post central line placement COMPARISON: August 25, 2018 chest radiograph FINDINGS: Lungs: The lung bases are excluded Cardiac silhouette: Post-CABG changes stable Pulmonary vasculature: Normal Pleural spaces: The costophrenic angles are excluded. No definite pneumothorax is evident within the upper hemithoraces. Upper abdomen: No abnormality seen. Osseous structures: No acute osseous abnormality. Additional findings: There is a right IJ central venous catheter with the catheter tip terminating i n the region of the distal SVC. IMPRESSION: Limitation exam as above. Central venous catheter as above.
== END 2020-07-17 22:28 | disposition short-term general hospital (02) ==
LOC: MADERS 10:15
DX: A41.9 Sepsis, unspecified organism (principal); R65.21 Severe sepsis with septic shock; L03.211 Cellulitis of face; N28.9 Disorder of kidney and ureter, unspecified; E87.1 Hypo-osmolality and hyponatremia; M62.82 Rhabdomyolysis; E78.00 Pure hypercholesterolemia, unspecified; E03.9 Hypothyroidism, unspecified; I10 Essential (primary) hypertension; Z79.899 Other long term (current) drug therapy; Z79.01 Long term (current) use of anticoagulants
CPT/HCPCS: 36415; 36556; 71045; 80053; 81003; 81015; 82550; 83605; 85025; 86140; 87040; 96365; 96366; 96367; 96375; C9113; J0692; J3370; J3490; J7030; J7050; J7070

== ENCOUNTER 2020-07-24 18:31 | Inpatient (IN) | payer MEDICARE ==
[2020-07-24] MEDS ORDERED: Senokot S 8.6-50 MG TAB PO PRN (20:15)
[2020-07-24] MEDS ORDERED: Acetaminophen 325 MG TAB PO PRN (20:15)
[2020-07-24] MEDS ORDERED: Ondansetron ODT 4 MG TAB PO PRN (20:15)
[2020-07-24] MEDS: Mycophenolate 250 MG CAP PO SCH (21:04)
[2020-07-24] MEDS: cycloSPORINE, Modified 25 MG CAP PO SCH (21:04)
[2020-07-24] MEDS: Amoxicillin/Potassium Clav 875 MG TAB PO SCH (21:04)
[2020-07-24] MEDS: cycloSPORINE, Modified 100 MG CAP PO SCH (21:04)
[2020-07-24] MEDS: traZODone HCl 50 MG TAB PO SCH (21:06)
[2020-07-24 21:29] VITALS: BMI 24.0
[2020-07-25] MEDS: Levothyroxine Sodium 75 MCG TAB PO SCH (05:10)
[2020-07-25 05:38] LABS: INR-International Normal Ratio 2.5; Prothrombin Time 27.4 sec (12.0-14.7)
[2020-07-25 05:39] LABS: PTT 55.8 sec (22.9-36.1)
[2020-07-25] MEDS ORDERED: WARFARIN SODIUM 3 MG PO SCH (09:00)
[2020-07-25] MEDS: Mycophenolate 250 MG CAP PO SCH ×2 (09:24→21:28)
[2020-07-25] MEDS: Fenofibrate Nanocrystallized 145 MG TAB PO SCH (09:24)
[2020-07-25] MEDS: predniSONE 5 MG TAB PO SCH (09:24)
[2020-07-25] MEDS: Amiodarone 200 MG TAB PO SCH (09:25)
[2020-07-25] MEDS: Escitalopram Oxalate 10 mg Tablet PO SCH (09:25)
[2020-07-25] MEDS: cycloSPORINE, Modified 25 MG CAP PO SCH ×2 (09:26→21:31)
[2020-07-25] MEDS: Atorvastatin Calcium 40 MG TAB PO SCH (09:26)
[2020-07-25] MEDS: Amoxicillin/Potassium Clav 875 MG TAB PO SCH ×2 (09:26→21:33)
[2020-07-25] MEDS: cycloSPORINE, Modified 100 MG CAP PO SCH ×2 (09:26→21:31)
[2020-07-25] MEDS: Warfarin Sodium 1 MG TAB PO SCH (17:18)
[2020-07-25] MEDS: traZODone HCl 50 MG TAB PO SCH (21:33)
[2020-07-26] MEDS: Levothyroxine Sodium 75 MCG TAB PO SCH (05:38)
[2020-07-26 05:51] LABS: INR-International Normal Ratio 2.6; Prothrombin Time 28.6 sec (12.0-14.7)
[2020-07-26] MEDS: Atorvastatin Calcium 40 MG TAB PO SCH (08:30)
[2020-07-26] MEDS: predniSONE 5 MG TAB PO SCH (08:30)
[2020-07-26] MEDS: Fenofibrate Nanocrystallized 145 MG TAB PO SCH (08:30)
[2020-07-26] MEDS: cycloSPORINE, Modified 25 MG CAP PO SCH ×2 (08:30→21:22)
[2020-07-26] MEDS: Amiodarone 200 MG TAB PO SCH (08:30)
[2020-07-26] MEDS: cycloSPORINE, Modified 100 MG CAP PO SCH ×2 (08:31→21:22)
[2020-07-26] MEDS: Mycophenolate 250 MG CAP PO SCH ×2 (08:31→21:22)
[2020-07-26] MEDS: Amoxicillin/Potassium Clav 875 MG TAB PO SCH ×2 (08:31→21:22)
[2020-07-26] MEDS: Escitalopram Oxalate 10 mg Tablet PO SCH (08:31)
[2020-07-26] MEDS: Warfarin Sodium 1 MG TAB PO SCH (17:03)
[2020-07-26] MEDS: traZODone HCl 50 MG TAB PO SCH (21:22)
[2020-07-27 05:39] LABS: Hemoglobin 8.7 g/dL (12.0-16.0); Platelet Count 330 thou/uL (130-400)
[2020-07-27 05:40] LABS: INR-International Normal Ratio 2.7
[2020-07-27] MEDS: Levothyroxine Sodium 75 MCG TAB PO SCH (05:56)
[2020-07-27] MEDS: Escitalopram Oxalate 10 mg Tablet PO SCH (08:34)
[2020-07-27] MEDS: Magnesium Oxide 400 MG TAB PO SCH (08:35)
[2020-07-27] MEDS: cycloSPORINE, Modified 100 MG CAP PO SCH ×2 (08:35→21:46)
[2020-07-27] MEDS: cycloSPORINE, Modified 25 MG CAP PO SCH ×2 (08:35→21:46)
[2020-07-27] MEDS: Amiodarone 200 MG TAB PO SCH (08:35)
[2020-07-27] MEDS: predniSONE 5 MG TAB PO SCH (08:35)
[2020-07-27] MEDS: Mycophenolate 250 MG CAP PO SCH ×2 (08:36→21:46)
[2020-07-27] MEDS: Warfarin Sodium 1 MG TAB PO SCH (17:43)
[2020-07-27] MEDS: traZODone HCl 50 MG TAB PO SCH (21:46)
[2020-07-28] MEDS: Levothyroxine Sodium 75 MCG TAB PO SCH (05:33)
[2020-07-28 05:56] LABS: INR-International Normal Ratio 2.2; Prothrombin Time 25.1 sec (12.0-14.7)
[2020-07-28] MEDS: Mycophenolate 250 MG CAP PO SCH ×2 (10:46→20:31)
[2020-07-28] MEDS: Magnesium Oxide 400 MG TAB PO SCH (10:46)
[2020-07-28] MEDS: cycloSPORINE, Modified 100 MG CAP PO SCH ×2 (10:46→20:32)
[2020-07-28] MEDS: cycloSPORINE, Modified 25 MG CAP PO SCH ×2 (10:46→20:32)
[2020-07-28] MEDS: Amiodarone 200 MG TAB PO SCH (10:47)
[2020-07-28] MEDS: Escitalopram Oxalate 10 mg Tablet PO SCH (10:47)
[2020-07-28] MEDS: predniSONE 5 MG TAB PO SCH (10:47)
[2020-07-28] MEDS: Warfarin Sodium 1 MG TAB PO SCH (17:57)
[2020-07-28] MEDS: traZODone HCl 50 MG TAB PO SCH (20:32)
[2020-07-29] MEDS: Levothyroxine Sodium 75 MCG TAB PO SCH (05:14)
[2020-07-29 06:07] LABS: INR-International Normal Ratio 1.8; Prothrombin Time 21.1 sec (12.0-14.7)
[2020-07-29] MEDS: Mycophenolate 250 MG CAP PO SCH ×2 (09:08→20:34)
[2020-07-29] MEDS: Magnesium Oxide 400 MG TAB PO SCH (09:08)
[2020-07-29] MEDS: cycloSPORINE, Modified 100 MG CAP PO SCH ×2 (09:08→20:33)
[2020-07-29] MEDS: cycloSPORINE, Modified 25 MG CAP PO SCH ×2 (09:08→20:34)
[2020-07-29] MEDS: predniSONE 5 MG TAB PO SCH (09:09)
[2020-07-29] MEDS: Amiodarone 200 MG TAB PO SCH (09:09)
[2020-07-29] MEDS: Escitalopram Oxalate 10 mg Tablet PO SCH (09:09)
[2020-07-29] MEDS: Warfarin Sodium 1 MG TAB PO SCH (17:59)
[2020-07-29] MEDS: traZODone HCl 50 MG TAB PO SCH (20:34)
[2020-07-30] MEDS: Levothyroxine Sodium 75 MCG TAB PO SCH (05:33)
[2020-07-30 05:40] LABS: INR-International Normal Ratio 1.6
[2020-07-30 05:45] LABS: Hemoglobin 9.1 g/dL (12.0-16.0); Platelet Count 278 thou/uL (130-400)
[2020-07-30] MEDS: Mycophenolate 250 MG CAP PO SCH ×2 (09:39→20:18)
[2020-07-30] MEDS: cycloSPORINE, Modified 100 MG CAP PO SCH ×2 (09:40→20:18)
[2020-07-30] MEDS: cycloSPORINE, Modified 25 MG CAP PO SCH ×2 (09:40→20:18)
[2020-07-30] MEDS: Escitalopram Oxalate 10 mg Tablet PO SCH (09:40)
[2020-07-30] MEDS: Magnesium Oxide 400 MG TAB PO SCH (09:40)
[2020-07-30] MEDS: Amiodarone 200 MG TAB PO SCH (09:40)
[2020-07-30] MEDS: predniSONE 5 MG TAB PO SCH (09:40)
[2020-07-30] MEDS: Warfarin Sodium 1 MG TAB PO SCH (17:19)
[2020-07-30] MEDS: traZODone HCl 50 MG TAB PO SCH (20:18)
[2020-07-31 05:50] LABS: INR-International Normal Ratio 1.6; Prothrombin Time 18.9 sec (12.0-14.7)
[2020-07-31] MEDS: Levothyroxine Sodium 75 MCG TAB PO SCH (05:54)
[2020-07-31] MEDS: Mycophenolate 250 MG CAP PO SCH ×2 (08:58→21:48)
[2020-07-31] MEDS: cycloSPORINE, Modified 100 MG CAP PO SCH ×2 (08:59→21:48)
[2020-07-31] MEDS: cycloSPORINE, Modified 25 MG CAP PO SCH ×2 (08:59→21:48)
[2020-07-31] MEDS: predniSONE 5 MG TAB PO SCH (08:59)
[2020-07-31] MEDS: Escitalopram Oxalate 10 mg Tablet PO SCH (08:59)
[2020-07-31] MEDS: Amiodarone 200 MG TAB PO SCH (08:59)
[2020-07-31] MEDS: Magnesium Oxide 400 MG TAB PO SCH (09:00)
[2020-07-31] MEDS ORDERED: Warfarin Sodium 5 MG TAB PO SCH (17:00)
[2020-07-31] MEDS: traZODone HCl 50 MG TAB PO SCH (21:48)
[2020-08-01] MEDS: Levothyroxine Sodium 75 MCG TAB PO SCH (05:49)
[2020-08-01 06:08] LABS: INR-International Normal Ratio 1.4; Prothrombin Time 17.9 sec (12.0-14.7)
[2020-08-01 08:59] VITALS: BP 127/54; TEMP 98.4
[2020-08-01] MEDS: predniSONE 5 MG TAB PO SCH (09:46)
[2020-08-01] MEDS: Mycophenolate 250 MG CAP PO SCH (09:46)
[2020-08-01] MEDS: Escitalopram Oxalate 10 mg Tablet PO SCH (09:46)
[2020-08-01] MEDS: Amiodarone 200 MG TAB PO SCH (09:47)
[2020-08-01] MEDS: cycloSPORINE, Modified 100 MG CAP PO SCH (09:47)
[2020-08-01] MEDS: cycloSPORINE, Modified 25 MG CAP PO SCH (09:47)
[2020-08-01] MEDS: Magnesium Oxide 400 MG TAB PO SCH (09:47)
== END 2020-08-01 15:24 | disposition home or self-care (01) | DRG 92 ==
LOC: MADMS 18:31 → UNDOADMIN 18:31
PROVIDERS: ADMIT Family Medicine; ATTEND Family Medicine
DX: R26.9 Unspecified abnormalities of gait and mobility (principal); N17.9 Acute kidney failure, unspecified; L02.31 Cutaneous abscess of buttock; Z94.0 Kidney transplant status; R53.81 Other malaise; Z79.01 Long term (current) use of anticoagulants; I12.9 Hypertensive chronic kidney disease with stage 1 through stage 4 chronic kidney disease, or unspecified chronic kidney disease; N18.9 Chronic kidney disease, unspecified; E03.9 Hypothyroidism, unspecified; K21.9 Gastro-esophageal reflux disease without esophagitis; R26.89 Other abnormalities of gait and mobility; K64.4 Residual hemorrhoidal skin tags; E78.5 Hyperlipidemia, unspecified; F41.9 Anxiety disorder, unspecified; F32.9 Major depressive disorder, single episode, unspecified; Z95.1 Presence of aortocoronary bypass graft; Z95.2 Presence of prosthetic heart valve; Z88.1 Allergy status to other antibiotic agents; Z88.5 Allergy status to narcotic agent
CPT/HCPCS: 36415; 85014; 85018; 85049; 85610; 85730; J7502; J7512; J7515; J7517

== ENCOUNTER 2020-08-07 12:23 | Outpatient (CLI) | payer MEDICARE ==
[2020-08-07 13:13] LABS: INR-International Normal Ratio 1.9; Prothrombin Time 22.5 sec (12.0-14.7)
== END 2020-08-07 12:24 | disposition home or self-care (01) ==
LOC: MADLAB 12:23
PROVIDERS: ATTEND Internal Medicine Cardiovascular Disease
DX: Z48.812 Encounter for surgical aftercare following surgery on the circulatory system (principal); Z95.2 Presence of prosthetic heart valve
CPT/HCPCS: 36415; 85610

== ENCOUNTER 2020-08-15 23:36 | Emergency (ER) | payer MEDICARE ==
[2020-08-15] MEDS ORDERED: Acetaminophen 500 MG TAB ONE (23:50)
[2020-08-15 23:54] LABS: Bilirubin Negative (Negative); Blood, Urine Moderate (Negative); Clarity Clear (Clear); Glucose, Urine (Dipstick) Negative (Negative); Ketone, Urine Negative (Negative); Leukocyte Trace (Negative); Nitrite Positive (Negative); Protein, Urine (Dipstick) 100 mg/dL (Neg-Trace); Urobilinogen 0.2 mg/dL (Less than 2); pH, Urine 5.5 (5.0-9.0)
[2020-08-15] MEDS ORDERED: cefTRIAXone\\ROCEPHIN 2 GM VIAL ONE (23:56)
[2020-08-15] MEDS ORDERED: Lidocaine 1% 20 ML MDV ONE (23:56)
[2020-08-15] MEDS ORDERED: cefTRIAXone\\ROCEPHIN 1 GM VIAL ONE (23:57)
[2020-08-16 00:15] LABS: Bacteria/HPF 3+ HPF (None Seen)
== END 2020-08-16 00:50 | disposition home or self-care (01) ==
LOC: MADERS 23:36
DX: N39.0 Urinary tract infection, site not specified (principal); E03.9 Hypothyroidism, unspecified; E78.00 Pure hypercholesterolemia, unspecified; I10 Essential (primary) hypertension
CPT/HCPCS: 51701; 81003; 81015; 87077; 87086; 87186; 96372; J0696

== ENCOUNTER 2020-09-18 10:56 | Outpatient (CLI) | payer MEDICARE ==
[2020-09-18 11:27] LABS: Prothrombin Time 13.6 sec (12.0-14.7)
== END 2020-09-18 10:57 | disposition home or self-care (01) ==
LOC: MADLAB 10:56
DX: Z48.812 Encounter for surgical aftercare following surgery on the circulatory system (principal); Z95.2 Presence of prosthetic heart valve
CPT/HCPCS: 36415; 85610

== ENCOUNTER 2020-10-10 13:03 | Outpatient (CLI) | payer MEDICARE ==
[2020-10-10 13:36] LABS: Prothrombin Time 32.2 sec (12.0-14.7)
== END 2020-10-10 13:04 | disposition home or self-care (01) ==
LOC: MADLAB 13:03
PROVIDERS: ATTEND Internal Medicine Cardiovascular Disease
DX: Z48.812 Encounter for surgical aftercare following surgery on the circulatory system (principal); Z95.2 Presence of prosthetic heart valve
CPT/HCPCS: 36415; 85610

== ENCOUNTER 2021-02-12 12:50 | Outpatient (CLI) | payer MEDICARE ==
[2021-02-12 13:33] LABS: INR-International Normal Ratio 1.1; Prothrombin Time 14.4 sec (12.0-14.7)
== END 2021-02-12 12:51 | disposition home or self-care (01) ==
LOC: MADLAB 12:50
PROVIDERS: ATTEND Internal Medicine Cardiovascular Disease
DX: Z48.812 Encounter for surgical aftercare following surgery on the circulatory system (principal); Z95.2 Presence of prosthetic heart valve
CPT/HCPCS: 36415; 85610

== ENCOUNTER 2021-03-07 10:44 | Outpatient (CLI) | payer MEDICARE ==
[2021-03-07 11:09] LABS: Prothrombin Time 41.2 sec (12.0-14.7)
[2021-03-07 11:13] LABS: INR-International Normal Ratio 4.2
== END 2021-03-07 10:45 | disposition home or self-care (01) ==
LOC: MADLAB 10:44
PROVIDERS: ATTEND Internal Medicine Cardiovascular Disease
DX: Z51.81 Encounter for therapeutic drug level monitoring (principal); Z95.2 Presence of prosthetic heart valve; Z79.899 Other long term (current) drug therapy
CPT/HCPCS: 36415; 85610

== ENCOUNTER 2021-05-22 13:03 | Outpatient (CLI) | payer MEDICARE ==
[2021-05-22 14:08] LABS: INR-International Normal Ratio 5.2
[2021-05-22 14:19] LABS: Prothrombin Time 49.2 sec (12.0-14.7)
== END 2021-05-22 13:04 | disposition home or self-care (01) ==
LOC: MADLAB 13:03
PROVIDERS: ATTEND Internal Medicine Cardiovascular Disease
DX: Z51.81 Encounter for therapeutic drug level monitoring (principal); Z95.2 Presence of prosthetic heart valve; Z79.01 Long term (current) use of anticoagulants
CPT/HCPCS: 36415; 85610

== ENCOUNTER 2021-06-20 11:06 | Outpatient (CLI) | payer MEDICARE ==
[2021-06-20 12:05] LABS: Prothrombin Time 39.7 sec (12.0-14.7)
== END 2021-06-20 11:07 | disposition home or self-care (01) ==
LOC: MADLAB 11:06
PROVIDERS: ATTEND Internal Medicine Cardiovascular Disease
DX: Z48.812 Encounter for surgical aftercare following surgery on the circulatory system (principal); Z95.2 Presence of prosthetic heart valve
CPT/HCPCS: 36415; 85610

== ENCOUNTER 2021-09-26 11:36 | Outpatient (CLI) | payer MEDICARE ==
[2021-09-26 11:54] LABS: INR-International Normal Ratio 1.4; Prothrombin Time 17.7 sec (12.0-14.7)
== END 2021-09-26 11:37 | disposition home or self-care (01) ==
LOC: MADLAB 11:36
PROVIDERS: ATTEND Internal Medicine Cardiovascular Disease
DX: Z48.812 Encounter for surgical aftercare following surgery on the circulatory system (principal); Z95.2 Presence of prosthetic heart valve
CPT/HCPCS: 36415; 85610

== ENCOUNTER 2021-12-26 10:28 | Outpatient (CLI) | payer MEDICARE ==
[2021-12-26 11:07] LABS: INR-International Normal Ratio 1.6; Prothrombin Time 19.7 sec (12.0-14.7)
== END 2021-12-26 10:29 | disposition home or self-care (01) ==
LOC: MADLAB 10:28
PROVIDERS: ATTEND Internal Medicine Cardiovascular Disease
DX: Z48.812 Encounter for surgical aftercare following surgery on the circulatory system (principal); Z95.2 Presence of prosthetic heart valve
CPT/HCPCS: 36415; 85610

== ENCOUNTER 2022-01-12 10:37 | Emergency (ER) | payer MEDICARE ==
[2022-01-12] MEDS ORDERED: HYDROcodone/Acetaminophen 5/325 mg Tablet ONE (12:04)
[2022-01-12] MEDS ORDERED: Cephalexin 500 MG CAP ONE (12:04)
== END 2022-01-12 12:13 | disposition home or self-care (01) ==
LOC: MADERS 10:37
DX: L03.115 Cellulitis of right lower limb (principal); I12.9 Hypertensive chronic kidney disease with stage 1 through stage 4 chronic kidney disease, or unspecified chronic kidney disease; N18.9 Chronic kidney disease, unspecified; E03.9 Hypothyroidism, unspecified; E78.00 Pure hypercholesterolemia, unspecified; Z77.22 Contact with and (suspected) exposure to environmental tobacco smoke (acute) (chronic); Z85.048 Personal history of other malignant neoplasm of rectum, rectosigmoid junction, and anus; Z79.01 Long term (current) use of anticoagulants; Z79.899 Other long term (current) drug therapy
CPT/HCPCS: 99283

== ENCOUNTER 2022-02-01 12:22 | Emergency (ER) | payer MEDICARE ==
[2022-02-01] MEDS ORDERED: Bacitracin 1 PK ONE (13:05)
[2022-02-01] MEDS ORDERED: HYDROcodone/Acetaminophen 5/325 mg Tablet ONE (13:22)
[2022-02-01] MEDS ORDERED: Cephalexin 500 MG CAP ONE (13:22)
== END 2022-02-01 13:49 | disposition home or self-care (01) ==
LOC: MADERS 12:22
DX: I73.9 Peripheral vascular disease, unspecified (principal); L03.115 Cellulitis of right lower limb; S91.104D Unspecified open wound of right lesser toe(s) without damage to nail, subsequent encounter; I10 Essential (primary) hypertension; E03.9 Hypothyroidism, unspecified; E78.00 Pure hypercholesterolemia, unspecified; Z85.048 Personal history of other malignant neoplasm of rectum, rectosigmoid junction, and anus; Z77.22 Contact with and (suspected) exposure to environmental tobacco smoke (acute) (chronic); Z79.01 Long term (current) use of anticoagulants; Z79.899 Other long term (current) drug therapy; Z95.1 Presence of aortocoronary bypass graft; Z94.0 Kidney transplant status
CPT/HCPCS: 99283

== ENCOUNTER 2022-02-13 10:50 | Outpatient (CLI) | payer MEDICARE ==
[2022-02-13 11:35] LABS: INR-International Normal Ratio 1.8; Prothrombin Time 20.9 sec (12.0-14.7)
== END 2022-02-13 10:51 | disposition home or self-care (01) ==
LOC: MADLAB 10:50
PROVIDERS: ATTEND Internal Medicine Cardiovascular Disease
DX: Z48.812 Encounter for surgical aftercare following surgery on the circulatory system (principal); Z95.2 Presence of prosthetic heart valve
CPT/HCPCS: 36415; 85610

== ENCOUNTER 2022-03-27 20:23 | Inpatient (IN) | payer MEDICARE ==
[2022-03-27] MEDS ORDERED: Senokot S 8.6-50 MG TAB PO PRN (22:07)
[2022-03-27] MEDS: oxyCODONE 5 MG TAB PO PRN (22:56)
[2022-03-28 05:51] LABS: INR-International Normal Ratio 1.6; Prothrombin Time 19.4 sec (12.0-14.7)
[2022-03-28 06:01] LABS: Anion Gap 16 mmol/L (10-20); BUN (Urea Nitrogen) 22 mg/dL (9.8-20.1); Calc. Creatinine Clearance 34 mL/min (70-130); Calcium 8.9 mg/dL (7.8-10.44); Carbon Dioxide 24 mmol/L (23-31); Chloride 99 mmol/L (98-107); Estimated GFR 43; Glucose 94 mg/dL (80-115); Sodium 135 mmol/L (136-145)
[2022-03-28] MEDS: Levothyroxine Sodium 75 MCG TAB PO SCH (06:11)
[2022-03-28] MEDS: Amiodarone 200 MG TAB PO SCH (08:00)
[2022-03-28] MEDS: Ferrous Sulfate 325 MG TAB PO SCH (08:00)
[2022-03-28] MEDS: Famotidine 20 MG TAB PO SCH (08:12)
[2022-03-28] MEDS: predniSONE 5 MG TAB PO SCH (08:12)
[2022-03-28] MEDS: Cholecalciferol 1,000 UNITS (25 MCG) TAB PO SCH (08:12)
[2022-03-28] MEDS: Amlodipine 5 MG TAB PO SCH (08:13)
[2022-03-28] MEDS: Escitalopram Oxalate 10 mg Tablet PO SCH (08:13)
[2022-03-28] MEDS: Gabapentin 100 MG CAP PO SCH ×3 (08:13→20:24)
[2022-03-28] MEDS: cycloSPORINE, Modified 100 MG CAP PO SCH ×2 (08:14→20:25)
[2022-03-28] MEDS: oxyCODONE 5 MG TAB PO PRN ×3 (08:24→20:25)
[2022-03-28] MEDS ORDERED: FLU VACC QS2022-23(6MOS UP)/PF 60 MCG/0.5 ML SYRINGE IM ONE (09:00)
[2022-03-28] MEDS: Atorvastatin Calcium 40 MG TAB PO SCH (09:43)
[2022-03-28] MEDS: Mycophenolate 250 MG CAP PO SCH ×2 (09:43→20:24)
[2022-03-28] MEDS: FENOFIBRATE MICRONIZED 67 MG PO SCH (09:47)
[2022-03-28] MEDS: Acetaminophen 325 MG TAB PO PRN ×2 (10:56→23:49)
[2022-03-28] MEDS ORDERED: tiZANidine HCl 4 MG TAB PO SCH (11:00)
[2022-03-28] MEDS: Warfarin Sodium 5 MG TAB PO SCH (17:06)
[2022-03-28] MEDS: traZODone HCl 50 MG TAB PO SCH (20:26)
[2022-03-28] MEDS: tiZANidine HCl 4 MG TAB PO PRN (23:49)
[2022-03-29] MEDS: Levothyroxine Sodium 75 MCG TAB PO SCH (05:15)
[2022-03-29] MEDS: oxyCODONE 5 MG TAB PO PRN ×3 (05:16→19:26)
[2022-03-29 05:24] LABS: INR-International Normal Ratio 1.7; Prothrombin Time 20.9 sec (12.0-14.7)
[2022-03-29] MEDS: Amiodarone 200 MG TAB PO SCH (08:11)
[2022-03-29] MEDS: predniSONE 5 MG TAB PO SCH (08:12)
[2022-03-29] MEDS: Ferrous Sulfate 325 MG TAB PO SCH (08:12)
[2022-03-29] MEDS: Cholecalciferol 1,000 UNITS (25 MCG) TAB PO SCH (08:13)
[2022-03-29] MEDS: Amlodipine 5 MG TAB PO SCH (08:13)
[2022-03-29] MEDS: Atorvastatin Calcium 40 MG TAB PO SCH (08:13)
[2022-03-29] MEDS: Escitalopram Oxalate 10 mg Tablet PO SCH (08:14)
[2022-03-29] MEDS: cycloSPORINE, Modified 100 MG CAP PO SCH ×2 (08:14→20:06)
[2022-03-29] MEDS: Famotidine 20 MG TAB PO SCH (08:14)
[2022-03-29] MEDS: Mycophenolate 250 MG CAP PO SCH ×2 (08:15→20:07)
[2022-03-29] MEDS: Gabapentin 100 MG CAP PO SCH ×3 (08:15→20:07)
[2022-03-29] MEDS: FENOFIBRATE MICRONIZED 67 MG PO SCH (08:16)
[2022-03-29] MEDS: Warfarin Sodium 5 MG TAB PO SCH (17:05)
[2022-03-29] MEDS: traZODone HCl 50 MG TAB PO SCH (20:07)
[2022-03-30 05:17] LABS: Hemoglobin 7.9 g/dL (12.0-16.0); Platelet Count 414 thou/uL (130-400)
[2022-03-30] MEDS: Levothyroxine Sodium 75 MCG TAB PO SCH (05:22)
[2022-03-30 05:25] LABS: INR-International Normal Ratio 1.7; Prothrombin Time 20.3 sec (12.0-14.7)
[2022-03-30] MEDS: predniSONE 5 MG TAB PO SCH (08:31)
[2022-03-30] MEDS: cycloSPORINE, Modified 100 MG CAP PO SCH ×2 (08:31→20:32)
[2022-03-30] MEDS: Mycophenolate 250 MG CAP PO SCH ×2 (08:31→20:30)
[2022-03-30] MEDS: Cholecalciferol 1,000 UNITS (25 MCG) TAB PO SCH (08:31)
[2022-03-30] MEDS: Ferrous Sulfate 325 MG TAB PO SCH (08:31)
[2022-03-30] MEDS: oxyCODONE 5 MG TAB PO PRN ×3 (08:31→20:31)
[2022-03-30] MEDS: Amiodarone 200 MG TAB PO SCH (08:32)
[2022-03-30] MEDS: Escitalopram Oxalate 10 mg Tablet PO SCH (08:32)
[2022-03-30] MEDS: Gabapentin 100 MG CAP PO SCH ×3 (08:32→20:32)
[2022-03-30] MEDS: Atorvastatin Calcium 40 MG TAB PO SCH (08:33)
[2022-03-30] MEDS: Lantiseptic Ointment 130 GM JAR TOP SCH ×2 (15:17→20:32)
[2022-03-30] MEDS: Warfarin Sodium 5 MG TAB PO SCH (17:21)
[2022-03-30] MEDS: traZODone HCl 50 MG TAB PO SCH (20:32)
[2022-03-30] MEDS: tiZANidine HCl 4 MG TAB PO PRN (23:49)
[2022-03-31] MEDS: oxyCODONE 5 MG TAB PO PRN ×4 (00:01→21:15)
[2022-03-31 05:30] LABS: INR-International Normal Ratio 1.7; Prothrombin Time 20.3 sec (12.0-14.7)
[2022-03-31] MEDS: Levothyroxine Sodium 75 MCG TAB PO SCH (05:35)
[2022-03-31] MEDS: Mycophenolate 250 MG CAP PO SCH ×2 (08:08→21:14)
[2022-03-31] MEDS: Gabapentin 100 MG CAP PO SCH ×3 (08:08→21:14)
[2022-03-31] MEDS: Escitalopram Oxalate 10 mg Tablet PO SCH (08:08)
[2022-03-31] MEDS: Amiodarone 200 MG TAB PO SCH (08:09)
[2022-03-31] MEDS: predniSONE 5 MG TAB PO SCH (08:09)
[2022-03-31] MEDS: Cholecalciferol 1,000 UNITS (25 MCG) TAB PO SCH (08:09)
[2022-03-31] MEDS: cycloSPORINE, Modified 100 MG CAP PO SCH ×2 (08:09→21:14)
[2022-03-31] MEDS: Atorvastatin Calcium 40 MG TAB PO SCH (08:09)
[2022-03-31] MEDS: Ferrous Sulfate 325 MG TAB PO SCH (08:09)
[2022-03-31] MEDS: Lantiseptic Ointment 130 GM JAR TOP SCH ×2 (08:11→21:18)
[2022-03-31] MEDS: tiZANidine HCl 4 MG TAB PO PRN (15:38)
[2022-03-31] MEDS: Warfarin Sodium 2 MG TAB PO SCH (17:00)
[2022-03-31] MEDS: traZODone HCl 50 MG TAB PO SCH (21:15)
[2022-04-01 05:24] LABS: INR-International Normal Ratio 1.7; Prothrombin Time 20.2 sec (12.0-14.7)
[2022-04-01] MEDS: tiZANidine HCl 4 MG TAB PO PRN (05:37)
[2022-04-01] MEDS: oxyCODONE 5 MG TAB PO PRN ×3 (05:37→20:21)
[2022-04-01] MEDS: Levothyroxine Sodium 75 MCG TAB PO SCH (05:45)
[2022-04-01] MEDS: cycloSPORINE, Modified 100 MG CAP PO SCH ×2 (08:23→20:21)
[2022-04-01] MEDS: Amiodarone 200 MG TAB PO SCH (08:23)
[2022-04-01] MEDS: Gabapentin 100 MG CAP PO SCH ×3 (08:23→20:19)
[2022-04-01] MEDS: Cholecalciferol 1,000 UNITS (25 MCG) TAB PO SCH (08:24)
[2022-04-01] MEDS: Mycophenolate 250 MG CAP PO SCH ×2 (08:24→20:19)
[2022-04-01] MEDS: predniSONE 5 MG TAB PO SCH (08:24)
[2022-04-01] MEDS: Escitalopram Oxalate 10 mg Tablet PO SCH (08:24)
[2022-04-01] MEDS: Ferrous Sulfate 325 MG TAB PO SCH (08:24)
[2022-04-01] MEDS: Lantiseptic Ointment 130 GM JAR TOP SCH ×2 (08:25→20:22)
[2022-04-01] MEDS: Atorvastatin Calcium 40 MG TAB PO SCH (08:25)
[2022-04-01] MEDS: Warfarin Sodium 2 MG TAB PO SCH (17:18)
[2022-04-01] MEDS: traZODone HCl 50 MG TAB PO SCH (20:21)
[2022-04-02 05:12] LABS: Hemoglobin 7.7 g/dL (12.0-16.0); Platelet Count 350 thou/uL (130-400)
[2022-04-02 05:23] LABS: Prothrombin Time 23.4 sec (12.0-14.7)
[2022-04-02] MEDS: oxyCODONE 5 MG TAB PO PRN ×3 (05:51→21:03)
[2022-04-02] MEDS: Levothyroxine Sodium 75 MCG TAB PO SCH (05:52)
[2022-04-02] MEDS: Amiodarone 200 MG TAB PO SCH (08:30)
[2022-04-02] MEDS: Gabapentin 100 MG CAP PO SCH ×3 (08:31→21:01)
[2022-04-02] MEDS: cycloSPORINE, Modified 100 MG CAP PO SCH ×2 (08:31→21:01)
[2022-04-02] MEDS: Ferrous Sulfate 325 MG TAB PO SCH ×2 (08:31→16:53)
[2022-04-02] MEDS: predniSONE 5 MG TAB PO SCH (08:32)
[2022-04-02] MEDS: Atorvastatin Calcium 40 MG TAB PO SCH (08:32)
[2022-04-02] MEDS: Escitalopram Oxalate 10 mg Tablet PO SCH (08:32)
[2022-04-02] MEDS: Mycophenolate 250 MG CAP PO SCH ×2 (08:32→21:01)
[2022-04-02] MEDS: Lantiseptic Ointment 130 GM JAR TOP SCH ×2 (08:36→21:02)
[2022-04-02] MEDS: Cholecalciferol 1,000 UNITS (25 MCG) TAB PO SCH (08:42)
[2022-04-02] MEDS: Warfarin Sodium 2 MG TAB PO SCH (16:54)
[2022-04-02] MEDS: traZODone HCl 50 MG TAB PO SCH (21:02)
[2022-04-03 05:47] LABS: INR-International Normal Ratio 1.8; Prothrombin Time 21.7 sec (12.0-14.7)
[2022-04-03] MEDS: Levothyroxine Sodium 75 MCG TAB PO SCH (06:14)
[2022-04-03] MEDS: oxyCODONE 5 MG TAB PO PRN ×3 (08:36→21:41)
[2022-04-03] MEDS: Atorvastatin Calcium 40 MG TAB PO SCH (08:37)
[2022-04-03] MEDS: Gabapentin 100 MG CAP PO SCH ×3 (08:37→21:43)
[2022-04-03] MEDS: predniSONE 5 MG TAB PO SCH (08:37)
[2022-04-03] MEDS: Ferrous Sulfate 325 MG TAB PO SCH ×2 (08:37→17:15)
[2022-04-03] MEDS: cycloSPORINE, Modified 100 MG CAP PO SCH ×2 (08:38→21:41)
[2022-04-03] MEDS: Escitalopram Oxalate 10 mg Tablet PO SCH (08:38)
[2022-04-03] MEDS: Amiodarone 200 MG TAB PO SCH (08:38)
[2022-04-03] MEDS: Mycophenolate 250 MG CAP PO SCH ×2 (08:38→21:41)
[2022-04-03] MEDS: Cholecalciferol 1,000 UNITS (25 MCG) TAB PO SCH (08:38)
[2022-04-03] MEDS: Lantiseptic Ointment 130 GM JAR TOP SCH ×2 (08:48→21:44)
[2022-04-03] MEDS: Warfarin Sodium 2 MG TAB PO SCH (17:16)
[2022-04-03] MEDS: traZODone HCl 50 MG TAB PO SCH (21:42)
[2022-04-04 05:09] LABS: Hemoglobin 7.9 g/dL (12.0-16.0); Platelet Count 344 10x3/uL (130-400)
[2022-04-04 05:19] LABS: INR-International Normal Ratio 1.9; Prothrombin Time 22.8 sec (12.0-14.7)
[2022-04-04] MEDS: Levothyroxine Sodium 75 MCG TAB PO SCH (05:21)
[2022-04-04] MEDS: Amiodarone 200 MG TAB PO SCH (07:54)
[2022-04-04] MEDS: oxyCODONE 5 MG TAB PO PRN ×3 (07:54→20:11)
[2022-04-04] MEDS: Ferrous Sulfate 325 MG TAB PO SCH ×2 (08:02→16:49)
[2022-04-04] MEDS: Atorvastatin Calcium 40 MG TAB PO SCH (08:03)
[2022-04-04] MEDS: Mycophenolate 250 MG CAP PO SCH ×2 (08:03→20:09)
[2022-04-04] MEDS: Escitalopram Oxalate 10 mg Tablet PO SCH (08:03)
[2022-04-04] MEDS: cycloSPORINE, Modified 100 MG CAP PO SCH ×2 (08:03→20:10)
[2022-04-04] MEDS: Cholecalciferol 1,000 UNITS (25 MCG) TAB PO SCH (08:03)
[2022-04-04] MEDS: predniSONE 5 MG TAB PO SCH (08:03)
[2022-04-04] MEDS: Gabapentin 100 MG CAP PO SCH ×3 (08:03→20:10)
[2022-04-04] MEDS: Lantiseptic Ointment 130 GM JAR TOP SCH ×2 (08:04→20:12)
[2022-04-04] MEDS: Warfarin Sodium 2 MG TAB PO SCH (16:49)
[2022-04-04] MEDS: traZODone HCl 50 MG TAB PO SCH (20:10)
[2022-04-05] MEDS: oxyCODONE 5 MG TAB PO PRN ×4 (05:17→22:03)
[2022-04-05] MEDS: Levothyroxine Sodium 75 MCG TAB PO SCH (05:17)
[2022-04-05 05:33] LABS: Prothrombin Time 23.1 sec (12.0-14.7)
[2022-04-05] MEDS: predniSONE 5 MG TAB PO SCH (08:09)
[2022-04-05] MEDS: Gabapentin 100 MG CAP PO SCH ×3 (08:09→22:01)
[2022-04-05] MEDS: Ferrous Sulfate 325 MG TAB PO SCH ×2 (08:09→16:39)
[2022-04-05] MEDS: Mycophenolate 250 MG CAP PO SCH ×2 (08:09→22:02)
[2022-04-05] MEDS: cycloSPORINE, Modified 100 MG CAP PO SCH ×2 (08:09→22:01)
[2022-04-05] MEDS: Cholecalciferol 1,000 UNITS (25 MCG) TAB PO SCH (08:09)
[2022-04-05] MEDS: Atorvastatin Calcium 40 MG TAB PO SCH (08:09)
[2022-04-05] MEDS: Escitalopram Oxalate 10 mg Tablet PO SCH (08:09)
[2022-04-05] MEDS: Lantiseptic Ointment 130 GM JAR TOP SCH ×2 (08:10→22:03)
[2022-04-05] MEDS: Amiodarone 200 MG TAB PO SCH (08:11)
[2022-04-05] MEDS: Warfarin Sodium 2 MG TAB PO SCH (16:39)
[2022-04-05] MEDS: traZODone HCl 50 MG TAB PO SCH (22:02)
[2022-04-06 05:29] LABS: INR-International Normal Ratio 2.1; Prothrombin Time 24.2 sec (12.0-14.7)
[2022-04-06] MEDS: Levothyroxine Sodium 75 MCG TAB PO SCH (05:36)
[2022-04-06] MEDS: Amiodarone 200 MG TAB PO SCH (08:03)
[2022-04-06] MEDS: predniSONE 5 MG TAB PO SCH (08:05)
[2022-04-06] MEDS: Ferrous Sulfate 325 MG TAB PO SCH ×2 (08:05→17:01)
[2022-04-06] MEDS: cycloSPORINE, Modified 100 MG CAP PO SCH ×2 (08:06→20:39)
[2022-04-06] MEDS: Cholecalciferol 1,000 UNITS (25 MCG) TAB PO SCH (08:06)
[2022-04-06] MEDS: Gabapentin 100 MG CAP PO SCH ×3 (08:06→20:39)
[2022-04-06] MEDS: Escitalopram Oxalate 10 mg Tablet PO SCH (08:06)
[2022-04-06] MEDS: Atorvastatin Calcium 40 MG TAB PO SCH (08:06)
[2022-04-06] MEDS: Mycophenolate 250 MG CAP PO SCH ×2 (08:07→20:37)
[2022-04-06] MEDS: Lantiseptic Ointment 130 GM JAR TOP SCH ×2 (08:13→20:38)
[2022-04-06] MEDS: oxyCODONE 5 MG TAB PO PRN ×2 (08:59→20:38)
[2022-04-06] MEDS ORDERED: Ondansetron ODT 4 MG TAB SL PRN (14:23)
[2022-04-06] MEDS ORDERED: Mag-Al Plus 1200 MG/1200 MG/120 MG/30 ML UDCUP PO PRN (14:24)
[2022-04-06] MEDS ORDERED: Ondansetron ODT 4 MG TAB SL SCH (14:30)
[2022-04-06] MEDS: Warfarin Sodium 2 MG TAB PO SCH (17:02)
[2022-04-06] MEDS: traZODone HCl 50 MG TAB PO SCH (20:37)
[2022-04-07] MEDS: Levothyroxine Sodium 75 MCG TAB PO SCH (05:16)
[2022-04-07] MEDS: Cholecalciferol 1,000 UNITS (25 MCG) TAB PO SCH (08:39)
[2022-04-07] MEDS: Amiodarone 200 MG TAB PO SCH (08:40)
[2022-04-07] MEDS: Ferrous Sulfate 325 MG TAB PO SCH ×2 (08:40→16:49)
[2022-04-07] MEDS: Escitalopram Oxalate 10 mg Tablet PO SCH (08:40)
[2022-04-07] MEDS: cycloSPORINE, Modified 100 MG CAP PO SCH ×2 (08:40→21:07)
[2022-04-07] MEDS: Mycophenolate 250 MG CAP PO SCH ×2 (08:40→21:06)
[2022-04-07] MEDS: Gabapentin 100 MG CAP PO SCH ×3 (08:41→21:06)
[2022-04-07] MEDS: predniSONE 5 MG TAB PO SCH (08:41)
[2022-04-07] MEDS: Atorvastatin Calcium 40 MG TAB PO SCH (08:41)
[2022-04-07] MEDS: oxyCODONE 5 MG TAB PO PRN ×2 (08:47→16:56)
[2022-04-07] MEDS: Lantiseptic Ointment 130 GM JAR TOP SCH ×2 (08:49→21:07)
[2022-04-07] MEDS: Warfarin Sodium 2 MG TAB PO SCH (16:49)
[2022-04-07] MEDS: traZODone HCl 50 MG TAB PO SCH (21:07)
[2022-04-08] MEDS: Levothyroxine Sodium 75 MCG TAB PO SCH (05:37)
[2022-04-08] MEDS: oxyCODONE 5 MG TAB PO PRN (05:37)
[2022-04-08 05:40] LABS: INR-International Normal Ratio 2.2; Prothrombin Time 25.6 sec (12.0-14.7)
[2022-04-08] MEDS: Mycophenolate 250 MG CAP PO SCH ×2 (08:12→20:50)
[2022-04-08] MEDS: Cholecalciferol 1,000 UNITS (25 MCG) TAB PO SCH (08:14)
[2022-04-08] MEDS: Gabapentin 100 MG CAP PO SCH ×3 (08:14→20:50)
[2022-04-08] MEDS: Escitalopram Oxalate 10 mg Tablet PO SCH (08:15)
[2022-04-08] MEDS: Atorvastatin Calcium 40 MG TAB PO SCH (08:15)
[2022-04-08] MEDS: predniSONE 5 MG TAB PO SCH (08:16)
[2022-04-08] MEDS: Ferrous Sulfate 325 MG TAB PO SCH ×2 (08:16→17:07)
[2022-04-08] MEDS: cycloSPORINE, Modified 100 MG CAP PO SCH ×2 (08:16→20:50)
[2022-04-08] MEDS: Amiodarone 200 MG TAB PO SCH (08:17)
[2022-04-08] MEDS: Lantiseptic Ointment 130 GM JAR TOP SCH ×2 (08:19→20:52)
[2022-04-08] MEDS ORDERED: GUAIFENESIN SF SOLN 200 MG/10 ML UDCUP PO PRN ×2 (08:49→09:20)
[2022-04-08] MEDS: Fluticasone Propionate Nasal Spray 16 gm Bottle NASAL SCH (09:14)
[2022-04-08 09:49] LABS: SARS-CoV-2 NAA Rapid Test Not Detected (NotDetected)
[2022-04-08] MEDS: Acetaminophen 325 MG TAB PO PRN (11:10)
[2022-04-08] MEDS: Warfarin Sodium 2 MG TAB PO SCH (17:08)
[2022-04-08] MEDS: traZODone HCl 50 MG TAB PO SCH (20:50)
[2022-04-09 05:43] LABS: INR-International Normal Ratio 2.6; Prothrombin Time 29.3 sec (12.0-14.7)
[2022-04-09] MEDS: Levothyroxine Sodium 75 MCG TAB PO SCH (06:07)
[2022-04-09] MEDS: oxyCODONE 5 MG TAB PO PRN ×2 (06:08→16:15)
[2022-04-09] MEDS: Gabapentin 100 MG CAP PO SCH ×3 (09:00→20:52)
[2022-04-09] MEDS: Mycophenolate 250 MG CAP PO SCH ×2 (09:01→20:52)
[2022-04-09] MEDS: Atorvastatin Calcium 40 MG TAB PO SCH (09:01)
[2022-04-09] MEDS: predniSONE 5 MG TAB PO SCH (09:01)
[2022-04-09] MEDS: cycloSPORINE, Modified 100 MG CAP PO SCH ×2 (09:02→20:52)
[2022-04-09] MEDS: Amiodarone 200 MG TAB PO SCH (09:02)
[2022-04-09] MEDS: Cholecalciferol 1,000 UNITS (25 MCG) TAB PO SCH (09:02)
[2022-04-09] MEDS: Ferrous Sulfate 325 MG TAB PO SCH ×2 (09:02→16:13)
[2022-04-09] MEDS: Escitalopram Oxalate 10 mg Tablet PO SCH (09:03)
[2022-04-09] MEDS: Fluticasone Propionate Nasal Spray 16 gm Bottle NASAL SCH (09:03)
[2022-04-09] MEDS: Lantiseptic Ointment 130 GM JAR TOP SCH ×2 (09:03→20:54)
[2022-04-09] MEDS: Warfarin Sodium 2 MG TAB PO SCH (16:13)
[2022-04-09] MEDS ORDERED: Diphenoxylate HCl/Atropine Tablet PO PRN (20:47)
[2022-04-09] MEDS: traZODone HCl 50 MG TAB PO SCH (20:52)
[2022-04-09] MEDS ORDERED: Diphenoxylate HCl/Atropine Tablet PO SCH (21:00)
[2022-04-10] MEDS: Levothyroxine Sodium 75 MCG TAB PO SCH (05:11)
[2022-04-10 05:31] LABS: INR-International Normal Ratio 3.2; Prothrombin Time 33.9 sec (12.0-14.7)
[2022-04-10] MEDS: Gabapentin 100 MG CAP PO SCH ×3 (08:15→20:49)
[2022-04-10] MEDS: Cholecalciferol 1,000 UNITS (25 MCG) TAB PO SCH (08:15)
[2022-04-10] MEDS: cycloSPORINE, Modified 100 MG CAP PO SCH ×2 (08:17→20:49)
[2022-04-10] MEDS: predniSONE 5 MG TAB PO SCH (08:18)
[2022-04-10] MEDS: Mycophenolate 250 MG CAP PO SCH ×2 (08:18→20:49)
[2022-04-10] MEDS: Escitalopram Oxalate 10 mg Tablet PO SCH (08:18)
[2022-04-10] MEDS: Amiodarone 200 MG TAB PO SCH (08:19)
[2022-04-10] MEDS: Ferrous Sulfate 325 MG TAB PO SCH ×2 (08:19→17:14)
[2022-04-10] MEDS: Lantiseptic Ointment 130 GM JAR TOP SCH ×2 (08:19→20:52)
[2022-04-10] MEDS: Atorvastatin Calcium 40 MG TAB PO SCH (08:20)
[2022-04-10] MEDS: oxyCODONE 5 MG TAB PO PRN ×2 (08:24→20:50)
[2022-04-10] MEDS: Fluticasone Propionate Nasal Spray 16 gm Bottle NASAL SCH (08:25)
[2022-04-10 20:17] VITALS: BMI 18.8
[2022-04-10] MEDS: traZODone HCl 50 MG TAB PO SCH (20:49)
[2022-04-11] MEDS: Levothyroxine Sodium 75 MCG TAB PO SCH (05:22)
[2022-04-11] MEDS: oxyCODONE 5 MG TAB PO PRN ×2 (05:24→20:51)
[2022-04-11 06:11] LABS: Prothrombin Time 32.8 sec (12.0-14.7)
[2022-04-11] MEDS: Amiodarone 200 MG TAB PO SCH (08:27)
[2022-04-11] MEDS: Ferrous Sulfate 325 MG TAB PO SCH ×2 (08:28→17:24)
[2022-04-11] MEDS: predniSONE 5 MG TAB PO SCH (08:28)
[2022-04-11] MEDS: cycloSPORINE, Modified 100 MG CAP PO SCH ×2 (08:29→20:51)
[2022-04-11] MEDS: Escitalopram Oxalate 10 mg Tablet PO SCH (08:30)
[2022-04-11] MEDS: Atorvastatin Calcium 40 MG TAB PO SCH (08:30)
[2022-04-11] MEDS: Gabapentin 100 MG CAP PO SCH ×3 (08:30→20:50)
[2022-04-11] MEDS: Mycophenolate 250 MG CAP PO SCH ×2 (08:31→20:50)
[2022-04-11] MEDS: Cholecalciferol 1,000 UNITS (25 MCG) TAB PO SCH (08:31)
[2022-04-11] MEDS: Lantiseptic Ointment 130 GM JAR TOP SCH ×2 (08:32→20:52)
[2022-04-11] MEDS: Fluticasone Propionate Nasal Spray 16 gm Bottle NASAL SCH (09:03)
[2022-04-11 09:05] LABS: Hemoglobin 8.7 g/dL (12.0-16.0); Platelet Count 347 10x3/uL (130-400)
[2022-04-11] MEDS ORDERED: Warfarin Sodium 5 MG TAB PO SCH (17:00)
[2022-04-11 20:14] VITALS: TEMP 98.2
[2022-04-11] MEDS: Amoxicillin/Potassium Clav 500 MG TAB PO SCH (20:51)
[2022-04-11] MEDS: traZODone HCl 50 MG TAB PO SCH (20:52)
[2022-04-12 05:43] LABS: INR-International Normal Ratio 3.7; Prothrombin Time 38.3 sec (12.0-14.7)
[2022-04-12] MEDS: Levothyroxine Sodium 75 MCG TAB PO SCH (06:25)
[2022-04-12 08:38] VITALS: BP 120/61
[2022-04-12] MEDS: Amiodarone 200 MG TAB PO SCH (08:49)
[2022-04-12] MEDS: predniSONE 5 MG TAB PO SCH (08:49)
[2022-04-12] MEDS: cycloSPORINE, Modified 100 MG CAP PO SCH (08:49)
[2022-04-12] MEDS: Amoxicillin/Potassium Clav 500 MG TAB PO SCH (08:49)
[2022-04-12] MEDS: Mycophenolate 250 MG CAP PO SCH (08:49)
[2022-04-12] MEDS: Gabapentin 100 MG CAP PO SCH (08:49)
[2022-04-12] MEDS: Cholecalciferol 1,000 UNITS (25 MCG) TAB PO SCH (08:50)
[2022-04-12] MEDS: Ferrous Sulfate 325 MG TAB PO SCH (08:50)
[2022-04-12] MEDS: Escitalopram Oxalate 10 mg Tablet PO SCH (08:50)
[2022-04-12] MEDS: Atorvastatin Calcium 40 MG TAB PO SCH (08:54)
[2022-04-12] MEDS: Lantiseptic Ointment 130 GM JAR TOP SCH (08:55)
[2022-04-12] MEDS: Fluticasone Propionate Nasal Spray 16 gm Bottle NASAL SCH (08:55)
[2022-04-12] MEDS: oxyCODONE 5 MG TAB PO PRN (08:57)
[2022-04-13] MEDS ORDERED: Warfarin Sodium 5 MG TAB PO SCH (17:00)
== END 2022-04-12 12:45 | disposition home or self-care (01) | DRG 559 ==
LOC: MADMS 20:23 → UNDOADMIN 20:23
PROVIDERS: ADMIT Family Medicine; ATTEND Family Medicine
DX: Z47.81 Encounter for orthopedic aftercare following surgical amputation (principal); A41.9 Sepsis, unspecified organism; R65.21 Severe sepsis with septic shock; D84.821 Immunodeficiency due to drugs; Z94.0 Kidney transplant status; N18.4 Chronic kidney disease, stage 4 (severe); N17.9 Acute kidney failure, unspecified; E03.9 Hypothyroidism, unspecified; K21.9 Gastro-esophageal reflux disease without esophagitis; I73.9 Peripheral vascular disease, unspecified; I12.9 Hypertensive chronic kidney disease with stage 1 through stage 4 chronic kidney disease, or unspecified chronic kidney disease; F41.8 Other specified anxiety disorders; J06.9 Acute upper respiratory infection, unspecified; F51.01 Primary insomnia; R26.81 Unsteadiness on feet; L89.621 Pressure ulcer of left heel, stage 1; E78.5 Hyperlipidemia, unspecified; Z20.822 Contact with and (suspected) exposure to COVID-19; D63.1 Anemia in chronic kidney disease; E78.2 Mixed hyperlipidemia; Z95.2 Presence of prosthetic heart valve; Z79.01 Long term (current) use of anticoagulants; Z98.890 Other specified postprocedural states; Z89.511 Acquired absence of right leg below knee; Z88.1 Allergy status to other antibiotic agents; Z88.5 Allergy status to narcotic agent; Z88.6 Allergy status to analgesic agent; Z79.890 Hormone replacement therapy; Z79.899 Other long term (current) drug therapy; Z95.820 Peripheral vascular angioplasty status with implants and grafts; Z87.891 Personal history of nicotine dependence; Z82.49 Family history of ischemic heart disease and other diseases of the circulatory system; Z80.0 Family history of malignant neoplasm of digestive organs
CPT/HCPCS: 36415; 71045; 80048; 82565; 85014; 85018; 85049; 85610; 87804; 87811; 90471; 90686; G0008; J7502; J7512; J7517; Q0162; U0002; U0003; U0005

== ENCOUNTER 2022-04-30 08:20 | Emergency (ER) | payer MEDICARE ==
[2022-04-30] MEDS ORDERED: Iopamidol 370 76% 100 ML VIAL ONE (08:28)
[2022-04-30] MEDS ORDERED: Sodium Chloride 0.9% 1,000 ML ONE (08:29)
[2022-04-30] MEDS ORDERED: Ondansetron PF 4 MG/2 ML Vial ONE (08:29)
[2022-04-30] MEDS ORDERED: Morphine 4 MG/ML VIAL ONE ×2 (08:29→13:13)
[2022-04-30] MEDS ORDERED: Pantoprazole 40 MG VIAL ONE (09:25)
[2022-04-30 10:37] LABS: #Basophils 0.1 thou/uL (0.0-0.2); #Lymphocytes 0.7 thou/uL (1.20-3.40); #Monocytes 0.6 thou/uL (0.11-0.59); #Neutrophils 5.4 thou/uL (1.40-6.50); %Basophils 1.2 % (0.0-1.0); %Eosinophils 0.2 % (0.0-10.0); %Lymphocytes 9.8 % (21.0-51.0); %Monocytes 9.2 % (0.0-10.0); %Neutrophils 79.5 % (42.0-75.0); Hemoglobin 9.6 g/dL (12.0-16.0); Mean Corpuscular HGB CONC 30.8 g/dL (32.0-36.0); Mean Corpuscular Hemoglobin 28.4 pg (27.0-31.0); Mean Corpuscular Volume 92.2 fl (78.0-98.0); Mean Platelet Volume 7.5 fL (7.4-10.4); Platelet Count 329 10x3/uL (130-400); RBC Distribution Width 18.1 % (11.5-14.5); Red Blood Cell (RBC) Count 3.39 mill/uL (4.20-5.40); White Blood Cell (WBC) Count 6.8 10x3/uL (4.8-10.8)
[2022-04-30 10:57] LABS: ALT (SGPT) Less than 7 U/L (8-55); AST (SGOT) 12 U/L (5-34); Albumin 3.1 g/dL (3.4-4.8); Alkaline Phosphatase 105 U/L (40-110); Anion Gap 17 mmol/L (10-20); BUN (Urea Nitrogen) 16 mg/dL (9.8-20.1); CK (CPK) 66 U/L (29-168); CRP (Inflammatory) 11.32 mg/dL (= or < 0.5); Calc. Creatinine Clearance 0 mL/min (70-130); Calcium 8.6 mg/dL (7.8-10.44); Carbon Dioxide 21 mmol/L (23-31); Chloride 98 mmol/L (98-107); Estimated GFR 51; Globulin 2.3 g/dL (2.4-3.5); Glucose 114 mg/dL (80-115); Protein, Total 5.4 g/dL (5.8-8.1); Sodium 132 mmol/L (136-145)
[2022-04-30 11:21] LABS: Lipase Less than 4 U/L (8-78)
[2022-04-30] MEDS ORDERED: Aspirin 325 MG TAB ONE (11:56)
[2022-04-30 13:38] LABS: CKMB 3.1 ng/mL (0-6.6)
== END 2022-04-30 16:10 | disposition short-term general hospital (02) ==
LOC: MADERS 08:20
DX: I72.4 Aneurysm of artery of lower extremity (principal); R11.2 Nausea with vomiting, unspecified; R77.8 Other specified abnormalities of plasma proteins; E03.9 Hypothyroidism, unspecified; E78.00 Pure hypercholesterolemia, unspecified; I10 Essential (primary) hypertension
CPT/HCPCS: 71045; 74177; 80053; 82550; 82553; 83605; 83690; 84484; 85025; 86140; 93005; 96361; 96374; 96375; 96376; C9113; J2270; J2405; J7050; Q9967

== ENCOUNTER 2022-05-08 08:46 | Emergency (ER) | payer MEDICARE | END 2022-05-08 10:42 | disposition home or self-care (01) | LOC: MADERS 08:46 | DX: T81.31XA Disruption of external operation (surgical) wound, not elsewhere classified, initial encounter (principal); I10 Essential (primary) hypertension; E78.00 Pure hypercholesterolemia, unspecified; E03.9 Hypothyroidism, unspecified; Z77.22 Contact with and (suspected) exposure to environmental tobacco smoke (acute) (chronic) | CPT/HCPCS: 99283 ==

== ENCOUNTER 2022-08-14 12:30 | Inpatient (IN) | payer MEDICARE ==
[2022-08-14] MEDS ORDERED: Ondansetron ODT 4 MG TAB PO PRN (14:24)
[2022-08-14] MEDS ORDERED: Senokot S 8.6-50 MG TAB PO PRN (14:24)
[2022-08-14] MEDS ORDERED: Acetaminophen 325 MG TAB PO PRN (14:35)
[2022-08-14 15:43] LABS: INR-International Normal Ratio 1.7; Prothrombin Time 20.8 sec (12.0-14.7)
[2022-08-14 15:44] LABS: PTT 39.2 sec (22.9-36.1)
[2022-08-14 16:02] VITALS: BMI 19.0
[2022-08-14] MEDS: Gabapentin 100 MG CAP PO SCH ×2 (16:22→21:29)
[2022-08-14] MEDS: Warfarin Sodium 2.5 MG TAB PO SCH (18:03)
[2022-08-14] MEDS: HYDROcodone/Acetaminophen 10/325 mg Tablet PO PRN (19:54)
[2022-08-14] MEDS: Atorvastatin Calcium 40 MG TAB PO SCH (21:29)
[2022-08-14] MEDS: traZODone HCl 50 MG TAB PO SCH (21:29)
[2022-08-14] MEDS: cycloSPORINE, Modified 100 MG CAP PO SCH (21:30)
[2022-08-14] MEDS: Famotidine 20 MG TAB PO SCH (21:30)
[2022-08-14] MEDS: Mycophenolate 250 MG CAP PO SCH (21:30)
[2022-08-15] MEDS: HYDROcodone/Acetaminophen 10/325 mg Tablet PO PRN (03:14)
[2022-08-15 05:27] LABS: Hemoglobin 8.3 g/dL (12.0-16.0); Platelet Count 343 10x3/uL (130-400)
[2022-08-15] MEDS: Levothyroxine Sodium 75 MCG TAB PO SCH (05:45)
[2022-08-15] MEDS: predniSONE 5 MG TAB PO SCH (08:32)
[2022-08-15] MEDS: Amiodarone 200 MG TAB PO SCH (08:32)
[2022-08-15] MEDS: Ferrous Sulfate 325 MG TAB PO SCH (08:33)
[2022-08-15] MEDS: Gabapentin 100 MG CAP PO SCH ×3 (08:34→21:24)
[2022-08-15] MEDS: Escitalopram Oxalate 10 mg Tablet PO SCH (08:34)
[2022-08-15] MEDS: Famotidine 20 MG TAB PO SCH ×2 (08:34→21:23)
[2022-08-15] MEDS: cycloSPORINE, Modified 100 MG CAP PO SCH ×2 (08:34→21:24)
[2022-08-15] MEDS: Fenofibrate Nanocrystallized 145 MG TAB PO SCH (08:34)
[2022-08-15] MEDS: Clopidogrel Bisulfate 75 MG TAB PO SCH (08:34)
[2022-08-15] MEDS: Cholecalciferol 1,000 UNITS (25 MCG) TAB PO SCH (08:35)
[2022-08-15] MEDS: Magnesium Oxide 400 MG TAB PO SCH (08:35)
[2022-08-15] MEDS: Fluticasone Propionate Nasal Spray 16 gm Bottle NASAL SCH (08:44)
[2022-08-15] MEDS: Mycophenolate 250 MG CAP PO SCH ×2 (08:44→21:24)
[2022-08-15 10:20] LABS: INR-International Normal Ratio 1.6; Prothrombin Time 19.7 sec (12.0-14.7)
[2022-08-15] MEDS ORDERED: Warfarin Sodium 5 MG TAB PO SCH (17:00)
[2022-08-15] MEDS: Acetaminophen 325 MG TAB PO PRN (21:23)
[2022-08-15] MEDS: Atorvastatin Calcium 40 MG TAB PO SCH (21:27)
[2022-08-15] MEDS: traZODone HCl 50 MG TAB PO SCH (21:27)
[2022-08-16] MEDS: Levothyroxine Sodium 75 MCG TAB PO SCH (05:16)
[2022-08-16 07:27] LABS: INR-International Normal Ratio 1.7; Prothrombin Time 20.3 sec (12.0-14.7)
[2022-08-16 07:28] LABS: PTT 35.5 sec (22.9-36.1)
[2022-08-16] MEDS: Clopidogrel Bisulfate 75 MG TAB PO SCH (08:04)
[2022-08-16] MEDS: Amiodarone 200 MG TAB PO SCH (08:04)
[2022-08-16] MEDS: Famotidine 20 MG TAB PO SCH ×2 (08:04→21:28)
[2022-08-16] MEDS: cycloSPORINE, Modified 100 MG CAP PO SCH ×2 (08:04→21:28)
[2022-08-16] MEDS: Escitalopram Oxalate 10 mg Tablet PO SCH (08:04)
[2022-08-16] MEDS: Fenofibrate Nanocrystallized 145 MG TAB PO SCH (08:04)
[2022-08-16] MEDS: Ferrous Sulfate 325 MG TAB PO SCH (08:04)
[2022-08-16] MEDS: Magnesium Oxide 400 MG TAB PO SCH (08:04)
[2022-08-16] MEDS: predniSONE 5 MG TAB PO SCH (08:04)
[2022-08-16] MEDS: Mycophenolate 250 MG CAP PO SCH ×2 (08:05→21:28)
[2022-08-16] MEDS: Cholecalciferol 1,000 UNITS (25 MCG) TAB PO SCH (08:05)
[2022-08-16] MEDS: Gabapentin 100 MG CAP PO SCH ×3 (08:05→21:29)
[2022-08-16] MEDS: Fluticasone Propionate Nasal Spray 16 gm Bottle NASAL SCH (08:09)
[2022-08-16] MEDS ORDERED: Warfarin Sodium 5 MG TAB PO SCH (17:00)
[2022-08-16] MEDS: Warfarin Sodium 5 MG TAB PO SCH (17:35)
[2022-08-16] MEDS: Atorvastatin Calcium 40 MG TAB PO SCH (21:28)
[2022-08-16] MEDS: traZODone HCl 50 MG TAB PO SCH (21:28)
[2022-08-16] MEDS: Acetaminophen 325 MG TAB PO PRN (21:28)
[2022-08-17] MEDS: Levothyroxine Sodium 75 MCG TAB PO SCH (05:30)
[2022-08-17 05:46] LABS: Prothrombin Time 23.1 sec (12.0-14.7)
[2022-08-17] MEDS: HYDROcodone/Acetaminophen 10/325 mg Tablet PO PRN ×3 (09:04→23:24)
[2022-08-17] MEDS: cycloSPORINE, Modified 100 MG CAP PO SCH ×2 (09:04→20:25)
[2022-08-17] MEDS: Cholecalciferol 1,000 UNITS (25 MCG) TAB PO SCH (09:05)
[2022-08-17] MEDS: Mycophenolate 250 MG CAP PO SCH ×2 (09:05→20:26)
[2022-08-17] MEDS: Magnesium Oxide 400 MG TAB PO SCH (09:05)
[2022-08-17] MEDS: Ferrous Sulfate 325 MG TAB PO SCH (09:05)
[2022-08-17] MEDS: Clopidogrel Bisulfate 75 MG TAB PO SCH (09:05)
[2022-08-17] MEDS: Amiodarone 200 MG TAB PO SCH (09:05)
[2022-08-17] MEDS: Gabapentin 100 MG CAP PO SCH ×3 (09:06→20:25)
[2022-08-17] MEDS: Fenofibrate Nanocrystallized 145 MG TAB PO SCH (09:06)
[2022-08-17] MEDS: predniSONE 5 MG TAB PO SCH (09:06)
[2022-08-17] MEDS: Escitalopram Oxalate 10 mg Tablet PO SCH (09:06)
[2022-08-17] MEDS: Famotidine 20 MG TAB PO SCH (09:07)
[2022-08-17] MEDS: Fluticasone Propionate Nasal Spray 16 gm Bottle NASAL SCH (09:13)
[2022-08-17] MEDS: Warfarin Sodium 5 MG TAB PO SCH (17:26)
[2022-08-17] MEDS: traZODone HCl 50 MG TAB PO SCH (20:25)
[2022-08-17] MEDS: Atorvastatin Calcium 40 MG TAB PO SCH (20:25)
[2022-08-18 05:28] LABS: INR-International Normal Ratio 2.2
[2022-08-18] MEDS: Levothyroxine Sodium 75 MCG TAB PO SCH (05:29)
[2022-08-18] MEDS: HYDROcodone/Acetaminophen 10/325 mg Tablet PO PRN ×3 (05:34→21:03)
[2022-08-18] MEDS: Ferrous Sulfate 325 MG TAB PO SCH (08:21)
[2022-08-18] MEDS: Amiodarone 200 MG TAB PO SCH (08:21)
[2022-08-18] MEDS: Fenofibrate Nanocrystallized 145 MG TAB PO SCH (08:21)
[2022-08-18] MEDS: Cholecalciferol 1,000 UNITS (25 MCG) TAB PO SCH (08:22)
[2022-08-18] MEDS: predniSONE 5 MG TAB PO SCH (08:22)
[2022-08-18] MEDS: Magnesium Oxide 400 MG TAB PO SCH (08:22)
[2022-08-18] MEDS: cycloSPORINE, Modified 100 MG CAP PO SCH ×2 (08:22→21:04)
[2022-08-18] MEDS: Mycophenolate 250 MG CAP PO SCH ×2 (08:22→21:03)
[2022-08-18] MEDS: Gabapentin 100 MG CAP PO SCH ×3 (08:22→21:02)
[2022-08-18] MEDS: Clopidogrel Bisulfate 75 MG TAB PO SCH (08:22)
[2022-08-18] MEDS: Escitalopram Oxalate 10 mg Tablet PO SCH (08:22)
[2022-08-18] MEDS: Fluticasone Propionate Nasal Spray 16 gm Bottle NASAL SCH (08:23)
[2022-08-18] MEDS: Warfarin Sodium 5 MG TAB PO SCH (17:33)
[2022-08-18] MEDS: traZODone HCl 50 MG TAB PO SCH (21:03)
[2022-08-18] MEDS: Atorvastatin Calcium 40 MG TAB PO SCH (21:03)
[2022-08-19] MEDS: Levothyroxine Sodium 75 MCG TAB PO SCH (05:24)
[2022-08-19 05:36] LABS: INR-International Normal Ratio 2.7; Prothrombin Time 29.6 sec (12.0-14.7)
[2022-08-19] MEDS: Fluticasone Propionate Nasal Spray 16 gm Bottle NASAL SCH (08:26)
[2022-08-19] MEDS: Magnesium Oxide 400 MG TAB PO SCH (08:27)
[2022-08-19] MEDS: Mycophenolate 250 MG CAP PO SCH ×2 (08:27→20:37)
[2022-08-19] MEDS: Cholecalciferol 1,000 UNITS (25 MCG) TAB PO SCH (08:27)
[2022-08-19] MEDS: Gabapentin 100 MG CAP PO SCH ×3 (08:28→20:37)
[2022-08-19] MEDS: Ferrous Sulfate 325 MG TAB PO SCH (08:28)
[2022-08-19] MEDS: Clopidogrel Bisulfate 75 MG TAB PO SCH (08:28)
[2022-08-19] MEDS: predniSONE 5 MG TAB PO SCH (08:28)
[2022-08-19] MEDS: cycloSPORINE, Modified 100 MG CAP PO SCH ×2 (08:28→20:37)
[2022-08-19] MEDS: Escitalopram Oxalate 10 mg Tablet PO SCH (08:28)
[2022-08-19] MEDS: Fenofibrate Nanocrystallized 145 MG TAB PO SCH (08:28)
[2022-08-19] MEDS: Amiodarone 200 MG TAB PO SCH (08:29)
[2022-08-19] MEDS: HYDROcodone/Acetaminophen 10/325 mg Tablet PO PRN (08:31)
[2022-08-19] MEDS: Acetaminophen 325 MG TAB PO PRN (16:29)
[2022-08-19] MEDS: Warfarin Sodium 2.5 MG TAB PO SCH (17:38)
[2022-08-19] MEDS: traZODone HCl 50 MG TAB PO SCH (20:37)
[2022-08-19] MEDS: Atorvastatin Calcium 40 MG TAB PO SCH (20:37)
[2022-08-20] MEDS: Levothyroxine Sodium 75 MCG TAB PO SCH (05:28)
[2022-08-20 05:50] LABS: INR-International Normal Ratio 2.6; Prothrombin Time 28.9 sec (12.0-14.7)
[2022-08-20] MEDS: Acetaminophen 325 MG TAB PO PRN (06:54)
[2022-08-20] MEDS: Ferrous Sulfate 325 MG TAB PO SCH ×2 (07:17→10:29)
[2022-08-20] MEDS: predniSONE 5 MG TAB PO SCH ×2 (07:17→10:29)
[2022-08-20] MEDS: Amiodarone 200 MG TAB PO SCH ×2 (07:18→17:19)
[2022-08-20] MEDS: cycloSPORINE, Modified 100 MG CAP PO SCH ×3 (10:28→20:57)
[2022-08-20] MEDS: Gabapentin 100 MG CAP PO SCH ×3 (10:28→20:55)
[2022-08-20] MEDS: Fenofibrate Nanocrystallized 145 MG TAB PO SCH ×2 (10:28→17:19)
[2022-08-20] MEDS: Cholecalciferol 1,000 UNITS (25 MCG) TAB PO SCH ×2 (10:29→17:19)
[2022-08-20] MEDS: Mycophenolate 250 MG CAP PO SCH ×3 (10:29→20:55)
[2022-08-20] MEDS: Escitalopram Oxalate 10 mg Tablet PO SCH ×2 (10:29→17:19)
[2022-08-20] MEDS: Fluticasone Propionate Nasal Spray 16 gm Bottle NASAL SCH ×2 (10:30→17:19)
[2022-08-20] MEDS: Magnesium Oxide 400 MG TAB PO SCH ×2 (10:31→17:19)
[2022-08-20 11:23] LABS: Hemoglobin 8.4 g/dL (12.0-16.0); Mean Corpuscular HGB CONC 29.6 g/dL (32.0-36.0); Mean Corpuscular Hemoglobin 27.2 pg (27.0-31.0); Mean Platelet Volume 9.2 fL (7.4-10.4); Platelet Count 496 10x3/uL (130-400); RBC Distribution Width 17.5 % (11.5-14.5); Red Blood Cell (RBC) Count 3.08 mill/uL (4.20-5.40); White Blood Cell (WBC) Count 6.9 10x3/uL (4.8-10.8)
[2022-08-20 12:06] LABS: #Eosinphils 0.2 thou/uL (0.0-0.7); #Lymphocytes 1.7 thou/uL (1.20-3.40); #Monocytes 0.7 thou/uL (0.11-0.59); #Neutrophils 4.7 thou/uL (1.40-6.50); %Basophils 0.6 % (0.0-1.0); %Eosinophils 2.7 % (0.0-10.0); %Lymphocytes 22.8 % (21.0-51.0); %Monocytes 9.4 % (0.0-10.0); %Neutrophils 64.6 % (42.0-75.0)
[2022-08-20 12:10] LABS: Anisocytosis MODERATE=16-30 cells (100X) (0-5/hpf); Hypochromia SLIGHT = 6-15 cells (100X) (0-5/hpf); MDiff Complete? YES; Platelet Morphology Comment Appears Increased; Polychromasia SLIGHT = 2-3 cells (100X) (0-2/hpf); Schistocytes SLIGHT = 2-5 cells (100X) (0-1/hpf); Tear Drops SLIGHT = 2-5 cells (100X) (0-1/hpf)
[2022-08-20] MEDS: HYDROcodone/Acetaminophen 10/325 mg Tablet PO PRN ×2 (15:16→20:59)
[2022-08-20] MEDS: Warfarin Sodium 5 MG TAB PO SCH (17:16)
[2022-08-20] MEDS: traZODone HCl 50 MG TAB PO SCH (20:57)
[2022-08-20] MEDS: Atorvastatin Calcium 40 MG TAB PO SCH (20:57)
[2022-08-21] MEDS: Levothyroxine Sodium 75 MCG TAB PO SCH (05:23)
[2022-08-21 05:38] LABS: INR-International Normal Ratio 2.3; Prothrombin Time 26.5 sec (12.0-14.7)
[2022-08-21 07:36] VITALS: BP 108/68; TEMP 98
[2022-08-21] MEDS: Mycophenolate 250 MG CAP PO SCH (08:19)
[2022-08-21] MEDS: Fenofibrate Nanocrystallized 145 MG TAB PO SCH (08:20)
[2022-08-21] MEDS: Amiodarone 200 MG TAB PO SCH (08:20)
[2022-08-21] MEDS: Gabapentin 100 MG CAP PO SCH (08:20)
[2022-08-21] MEDS: cycloSPORINE, Modified 100 MG CAP PO SCH (08:20)
[2022-08-21] MEDS: Cholecalciferol 1,000 UNITS (25 MCG) TAB PO SCH (08:21)
[2022-08-21] MEDS: Escitalopram Oxalate 10 mg Tablet PO SCH (08:22)
[2022-08-21] MEDS: predniSONE 5 MG TAB PO SCH (08:23)
[2022-08-21] MEDS: Clopidogrel Bisulfate 75 MG TAB PO SCH (08:24)
[2022-08-21] MEDS: Fluticasone Propionate Nasal Spray 16 gm Bottle NASAL SCH (08:24)
[2022-08-21] MEDS: Magnesium Oxide 400 MG TAB PO SCH (08:25)
[2022-08-21] MEDS: Ferrous Sulfate 325 MG TAB PO SCH (08:26)
[2022-08-21] MEDS: HYDROcodone/Acetaminophen 10/325 mg Tablet PO PRN (08:29)
== END 2022-08-21 13:30 | disposition home or self-care (01) | DRG 560 ==
LOC: MADMS 12:30
PROVIDERS: ADMIT Emergency Medicine; ATTEND Family Medicine
DX: Z47.81 Encounter for orthopedic aftercare following surgical amputation (principal); H34.12 Central retinal artery occlusion, left eye; N18.4 Chronic kidney disease, stage 4 (severe); I48.91 Unspecified atrial fibrillation; I73.9 Peripheral vascular disease, unspecified; I12.9 Hypertensive chronic kidney disease with stage 1 through stage 4 chronic kidney disease, or unspecified chronic kidney disease; E78.5 Hyperlipidemia, unspecified; F32.A Depression, unspecified; L89.621 Pressure ulcer of left heel, stage 1; K21.9 Gastro-esophageal reflux disease without esophagitis; H11.31 Conjunctival hemorrhage, right eye; H25.9 Unspecified age-related cataract; I48.0 Paroxysmal atrial fibrillation; D63.1 Anemia in chronic kidney disease; Z88.5 Allergy status to narcotic agent; Z88.1 Allergy status to other antibiotic agents; Z88.8 Allergy status to other drugs, medicaments and biological substances; Z79.899 Other long term (current) drug therapy; Z79.01 Long term (current) use of anticoagulants; Z95.2 Presence of prosthetic heart valve; Z89.611 Acquired absence of right leg above knee
CPT/HCPCS: 36415; 85014; 85018; 85025; 85049; 85610; 85730; J7502; J7512; J7517

== ENCOUNTER 2022-09-09 12:59 | Emergency (ER) | payer MEDICARE ==
[~2022-09-09 12:59] MED LIST changes: +Iopamidol 370 76% 100 ML VIAL ONE; -Sodium Chloride 0.9% 1,000 ML BAG ONE; -Sodium Chloride 0.9% 100 ML BAG ONE; -Sodium Chloride 0.9% 500 ML BAG ONE
[2022-09-09 14:21] LABS: INR-International Normal Ratio 1.9; PTT 34.6 sec (22.9-36.1); Prothrombin Time 22.9 sec (12.0-14.7)
[2022-09-09 14:24] LABS: #Basophils 0.1 thou/uL (0.0-0.2); #Eosinphils 0.1 thou/uL (0.0-0.7); #Lymphocytes 0.7 thou/uL (1.20-3.40); #Monocytes 0.4 thou/uL (0.11-0.59); %Basophils 1.6 % (0.0-1.0); %Eosinophils 2.5 % (0.0-10.0); %Lymphocytes 13.5 % (21.0-51.0); %Monocytes 7.5 % (0.0-10.0); %Neutrophils 74.9 % (42.0-75.0); Anisocytosis SLIGHT = 6-15 cells (100X) (0-5/hpf); Hemoglobin 7.8 g/dL (12.0-16.0); Hypochromia SLIGHT = 6-15 cells (100X) (0-5/hpf); MDiff Complete? YES; Macrocytosis SLIGHT = 6-15 cells (100X) (0-5/hpf); Mean Corpuscular HGB CONC 28.8 g/dL (32.0-36.0); Mean Corpuscular Hemoglobin 28.4 pg (27.0-31.0); Mean Corpuscular Volume 98.8 fl (78.0-98.0); Mean Platelet Volume 10.3 fL (7.4-10.4); Platelet Count 253 10x3/uL (130-400); Platelet Morphology Comment Appears Adequate; RBC Distribution Width 19.6 % (11.5-14.5); Red Blood Cell (RBC) Count 2.73 mill/uL (4.20-5.40); Tear Drops SLIGHT = 2-5 cells (100X) (0-1/hpf); White Blood Cell (WBC) Count 5.4 10x3/uL (4.8-10.8)
[2022-09-09 14:31] LABS: ALT (SGPT) 9 U/L (8-55); AST (SGOT) 12 U/L (5-34); Albumin 3.4 g/dL (3.4-4.8); Alkaline Phosphatase 72 U/L (40-110); Anion Gap 12 mmol/L (10-20); BUN (Urea Nitrogen) 23 mg/dL (9.8-20.1); Bilirubin, Total 0.3 mg/dL (0.2-1.2); Calc. Creatinine Clearance 0 mL/min (70-130); Calcium 9.4 mg/dL (7.8-10.44); Carbon Dioxide 22 mmol/L (23-31); Chloride 111 mmol/L (98-107); Estimated GFR 41; Globulin 2.5 g/dL (2.4-3.5); Glucose 125 mg/dL (80-115); Lipase 9 U/L (8-78); Magnesium 1.8 mg/dL (1.6-2.6); Potassium 3.7 mmol/L (3.5-5.1); Protein, Total 5.9 g/dL (5.8-8.1); Sodium 141 mmol/L (136-145)
[2022-09-09 18:56] LABS: Hemoglobin 7.2 g/dL (12.0-16.0)
[2022-09-09] MEDS ORDERED: Pantoprazole 40 MG VIAL ONE (19:24)
[2022-09-09 23:58] LABS: Hemoglobin 7.5 g/dL (12.0-16.0)
[2022-09-10] MEDS ORDERED: HYDROcodone/Acetaminophen 5/325 mg Tablet ONE ×3 (01:41→15:09)
[2022-09-10 07:55] LABS: Hemoglobin 7.5 g/dL (12.0-16.0)
[2022-09-10] MEDS ORDERED: Warfarin Sodium 5 MG TAB PO SCH (15:00)
[2022-09-10 17:51] LABS: Hemoglobin 7.7 g/dL (12.0-16.0)
[2022-09-10 17:57] LABS: INR-International Normal Ratio 1.7; PTT 35.2 sec (22.9-36.1); Prothrombin Time 20.6 sec (12.0-14.7)
== END 2022-09-10 18:41 | disposition short-term general hospital (02) ==
LOC: MADERS 12:59
DX: K92.2 Gastrointestinal hemorrhage, unspecified (principal); Z79.01 Long term (current) use of anticoagulants; I10 Essential (primary) hypertension; Z79.899 Other long term (current) drug therapy; Z77.22 Contact with and (suspected) exposure to environmental tobacco smoke (acute) (chronic)
CPT/HCPCS: 36415; 74174; 80053; 83690; 83735; 85014; 85018; 85025; 85610; 85730; 86850; 86900; 86901; 96374; C9113; Q9967

== ENCOUNTER 2022-12-16 13:54 | Emergency (ER) | payer MEDICARE ==
[2022-12-16] MEDS ORDERED: Morphine 2 MG/ML VIAL ONE (15:24)
== END 2022-12-16 16:46 | disposition home or self-care (01) ==
LOC: MADERS 13:54
DX: I73.9 Peripheral vascular disease, unspecified (principal); E03.9 Hypothyroidism, unspecified; K21.9 Gastro-esophageal reflux disease without esophagitis; E78.00 Pure hypercholesterolemia, unspecified; I12.9 Hypertensive chronic kidney disease with stage 1 through stage 4 chronic kidney disease, or unspecified chronic kidney disease; N18.9 Chronic kidney disease, unspecified; G47.00 Insomnia, unspecified; F17.210 Nicotine dependence, cigarettes, uncomplicated; Z79.01 Long term (current) use of anticoagulants; Z79.899 Other long term (current) drug therapy; Z95.1 Presence of aortocoronary bypass graft; Z89.611 Acquired absence of right leg above knee
CPT/HCPCS: 96374; J2272

== ENCOUNTER 2023-01-07 13:57 | Inpatient (IN) | payer MEDICARE ==
[2023-01-07 14:59] VITALS: BMI 19.8
[2023-01-07] MEDS ORDERED: Loperamide HCl 2 MG CAP PO PRN (16:40)
[2023-01-07] MEDS: Carvedilol 3.125 MG TAB PO SCH (17:19)
[2023-01-07] MEDS: HYDROcodone/Acetaminophen 5/325 mg Tablet PO PRN ×2 (17:20→23:42)
[2023-01-07 17:26] LABS: INR-International Normal Ratio 1.8; Prothrombin Time 21.6 sec (12.0-14.7)
[2023-01-07] MEDS ORDERED: Warfarin Sodium 5 MG TAB PO SCH (18:00)
[2023-01-07] MEDS: Mycophenolate 250 MG CAP PO SCH (20:58)
[2023-01-07] MEDS: Rosuvastatin 10 MG TAB PO SCH (20:59)
[2023-01-07] MEDS: traZODone HCl 50 MG TAB PO SCH (20:59)
[2023-01-07] MEDS: Sucralfate 1 GM TAB PO SCH (20:59)
[2023-01-07] MEDS ORDERED: Sucralfate 1 GM TAB PO SCH (21:00)
[2023-01-08 05:11] LABS: Hematocrit 30.5 % (36.0-47.0); Hemoglobin 9.7 g/dL (12.0-16.0); Platelet Count 416 10x3/uL (130-400)
[2023-01-08 05:22] LABS: Prothrombin Time 23.4 sec (12.0-14.7)
[2023-01-08] MEDS: HYDROcodone/Acetaminophen 5/325 mg Tablet PO PRN ×4 (07:15→22:47)
[2023-01-08] MEDS: Ferrous Sulfate 325 MG TAB PO SCH (07:57)
[2023-01-08] MEDS: Cholecalciferol 1,000 UNITS (25 MCG) TAB PO SCH (07:58)
[2023-01-08] MEDS: Carvedilol 3.125 MG TAB PO SCH ×2 (07:58→17:12)
[2023-01-08] MEDS: Mycophenolate 250 MG CAP PO SCH ×2 (07:58→20:04)
[2023-01-08] MEDS: Sucralfate 1 GM TAB PO SCH ×2 (07:58→20:05)
[2023-01-08] MEDS: predniSONE 5 MG TAB PO SCH (07:59)
[2023-01-08] MEDS: Magnesium Oxide 400 MG TAB PO SCH (07:59)
[2023-01-08] MEDS: Clopidogrel Bisulfate 75 MG TAB PO SCH (07:59)
[2023-01-08] MEDS: Levothyroxine Sodium 75 MCG TAB PO SCH (07:59)
[2023-01-08] MEDS: Escitalopram Oxalate 10 mg Tablet PO SCH (07:59)
[2023-01-08] MEDS: Multivitamin W/ Minerals 1 TAB PO SCH (07:59)
[2023-01-08] MEDS: Fenofibrate Nanocrystallized 145 MG TAB PO SCH (07:59)
[2023-01-08] MEDS ORDERED: Warfarin Sodium 2.5 MG TAB PO SCH (17:00)
[2023-01-08] MEDS: Rosuvastatin 10 MG TAB PO SCH (20:05)
[2023-01-08] MEDS: traZODone HCl 50 MG TAB PO SCH (20:06)
[2023-01-09 05:10] LABS: Hemoglobin 10.4 g/dL (12.0-16.0); Platelet Count 456 10x3/uL (130-400)
[2023-01-09 05:21] LABS: INR-International Normal Ratio 2.5; Prothrombin Time 28.2 sec (12.0-14.7)
[2023-01-09] MEDS: HYDROcodone/Acetaminophen 5/325 mg Tablet PO PRN ×3 (05:46→19:35)
[2023-01-09] MEDS: Cholecalciferol 1,000 UNITS (25 MCG) TAB PO SCH (08:16)
[2023-01-09] MEDS: Levothyroxine Sodium 75 MCG TAB PO SCH (08:16)
[2023-01-09] MEDS: Mycophenolate 250 MG CAP PO SCH ×2 (08:17→20:14)
[2023-01-09] MEDS: Carvedilol 3.125 MG TAB PO SCH ×2 (08:17→17:04)
[2023-01-09] MEDS: Magnesium Oxide 400 MG TAB PO SCH (08:17)
[2023-01-09] MEDS: Ferrous Sulfate 325 MG TAB PO SCH (08:17)
[2023-01-09] MEDS: Fenofibrate Nanocrystallized 145 MG TAB PO SCH (08:17)
[2023-01-09] MEDS: Escitalopram Oxalate 10 mg Tablet PO SCH (08:17)
[2023-01-09] MEDS: Clopidogrel Bisulfate 75 MG TAB PO SCH (08:17)
[2023-01-09] MEDS: Sucralfate 1 GM TAB PO SCH ×2 (08:17→20:14)
[2023-01-09] MEDS: predniSONE 5 MG TAB PO SCH (08:17)
[2023-01-09] MEDS: Multivitamin W/ Minerals 1 TAB PO SCH (08:17)
[2023-01-09] MEDS ORDERED: Warfarin Sodium 2.5 MG TAB PO SCH (17:00)
[2023-01-09] MEDS ORDERED: Warfarin Sodium 5 MG TAB PO SCH (17:00)
[2023-01-09] MEDS: Rosuvastatin 10 MG TAB PO SCH (20:14)
[2023-01-09] MEDS: traZODone HCl 50 MG TAB PO SCH (20:14)
[2023-01-10 05:21] LABS: Hematocrit 32.3 % (36.0-47.0); Hemoglobin 10.3 g/dL (12.0-16.0); Platelet Count 469 10x3/uL (130-400)
[2023-01-10 05:24] LABS: INR-International Normal Ratio 2.9; Prothrombin Time 31.3 sec (12.0-14.7)
[2023-01-10] MEDS: HYDROcodone/Acetaminophen 5/325 mg Tablet PO PRN ×3 (06:09→19:53)
[2023-01-10] MEDS: Carvedilol 3.125 MG TAB PO SCH ×2 (08:02→17:03)
[2023-01-10] MEDS: Magnesium Oxide 400 MG TAB PO SCH (08:03)
[2023-01-10] MEDS: Mycophenolate 250 MG CAP PO SCH ×2 (08:03→19:54)
[2023-01-10] MEDS: Cholecalciferol 1,000 UNITS (25 MCG) TAB PO SCH (08:03)
[2023-01-10] MEDS: predniSONE 5 MG TAB PO SCH (08:03)
[2023-01-10] MEDS: Levothyroxine Sodium 75 MCG TAB PO SCH (08:03)
[2023-01-10] MEDS: Sucralfate 1 GM TAB PO SCH ×2 (08:03→19:54)
[2023-01-10] MEDS: Multivitamin W/ Minerals 1 TAB PO SCH (08:03)
[2023-01-10] MEDS: Clopidogrel Bisulfate 75 MG TAB PO SCH (08:04)
[2023-01-10] MEDS: Ferrous Sulfate 325 MG TAB PO SCH (08:04)
[2023-01-10] MEDS: Fenofibrate Nanocrystallized 145 MG TAB PO SCH (08:04)
[2023-01-10] MEDS: Escitalopram Oxalate 10 mg Tablet PO SCH (08:04)
[2023-01-10] MEDS ORDERED: Warfarin Sodium 5 MG TAB PO SCH (17:00)
[2023-01-10] MEDS ORDERED: Warfarin Sodium 2.5 MG TAB PO SCH (17:00)
[2023-01-10] MEDS: Rosuvastatin 10 MG TAB PO SCH (19:55)
[2023-01-10] MEDS: traZODone HCl 50 MG TAB PO SCH (19:55)
[2023-01-11 05:15] LABS: INR-International Normal Ratio 3.1
[2023-01-11] MEDS: HYDROcodone/Acetaminophen 5/325 mg Tablet PO PRN ×3 (06:16→20:27)
[2023-01-11] MEDS: Mycophenolate 250 MG CAP PO SCH ×2 (08:15→20:27)
[2023-01-11] MEDS: Fenofibrate Nanocrystallized 145 MG TAB PO SCH (08:15)
[2023-01-11] MEDS: Carvedilol 3.125 MG TAB PO SCH ×2 (08:15→17:10)
[2023-01-11] MEDS: Sucralfate 1 GM TAB PO SCH ×2 (08:16→21:39)
[2023-01-11] MEDS: Cholecalciferol 1,000 UNITS (25 MCG) TAB PO SCH (08:16)
[2023-01-11] MEDS: Escitalopram Oxalate 10 mg Tablet PO SCH (08:17)
[2023-01-11] MEDS: predniSONE 5 MG TAB PO SCH (08:17)
[2023-01-11] MEDS: Magnesium Oxide 400 MG TAB PO SCH (08:17)
[2023-01-11] MEDS: Ferrous Sulfate 325 MG TAB PO SCH (08:17)
[2023-01-11] MEDS: Clopidogrel Bisulfate 75 MG TAB PO SCH (08:17)
[2023-01-11] MEDS: Multivitamin W/ Minerals 1 TAB PO SCH (08:17)
[2023-01-11] MEDS: Levothyroxine Sodium 75 MCG TAB PO SCH (08:17)
[2023-01-11] MEDS: Senokot S 8.6-50 MG TAB PO PRN (13:24)
[2023-01-11] MEDS ORDERED: Warfarin Sodium 5 MG TAB PO SCH (17:00)
[2023-01-11] MEDS: Rosuvastatin 10 MG TAB PO SCH (20:26)
[2023-01-11] MEDS: traZODone HCl 50 MG TAB PO SCH (20:27)
[2023-01-12 06:21] LABS: INR-International Normal Ratio 3.2; Prothrombin Time 34.5 sec (12.0-14.7)
[2023-01-12] MEDS: HYDROcodone/Acetaminophen 5/325 mg Tablet PO PRN ×3 (06:21→20:10)
[2023-01-12] MEDS: Polyethylene Glycol 3350 17 GM Packet PO SCH (08:05)
[2023-01-12] MEDS: Ferrous Sulfate 325 MG TAB PO SCH (08:06)
[2023-01-12] MEDS: Carvedilol 3.125 MG TAB PO SCH ×2 (08:06→16:31)
[2023-01-12] MEDS: Cholecalciferol 1,000 UNITS (25 MCG) TAB PO SCH (08:06)
[2023-01-12] MEDS: Magnesium Oxide 400 MG TAB PO SCH (08:07)
[2023-01-12] MEDS: Escitalopram Oxalate 10 mg Tablet PO SCH (08:07)
[2023-01-12] MEDS: Sucralfate 1 GM TAB PO SCH ×2 (08:07→21:28)
[2023-01-12] MEDS: Mycophenolate 250 MG CAP PO SCH ×2 (08:07→20:04)
[2023-01-12] MEDS: Fenofibrate Nanocrystallized 145 MG TAB PO SCH (08:07)
[2023-01-12] MEDS: Levothyroxine Sodium 75 MCG TAB PO SCH (08:08)
[2023-01-12] MEDS: Clopidogrel Bisulfate 75 MG TAB PO SCH (08:08)
[2023-01-12] MEDS: Multivitamin W/ Minerals 1 TAB PO SCH (08:08)
[2023-01-12] MEDS: predniSONE 5 MG TAB PO SCH (08:13)
[2023-01-12] MEDS: Senokot S 8.6-50 MG TAB PO PRN (16:31)
[2023-01-12] MEDS ORDERED: Warfarin Sodium 2.5 MG TAB PO SCH (17:00)
[2023-01-12] MEDS: Rosuvastatin 10 MG TAB PO SCH (20:06)
[2023-01-12] MEDS: traZODone HCl 50 MG TAB PO SCH (20:06)
[2023-01-13 06:00] LABS: INR-International Normal Ratio 2.9; Prothrombin Time 31.6 sec (12.0-14.7)
[2023-01-13] MEDS: HYDROcodone/Acetaminophen 5/325 mg Tablet PO PRN ×3 (06:19→20:51)
[2023-01-13 07:14] LABS: Hemoglobin 10.1 g/dL (12.0-16.0); Mean Corpuscular HGB CONC 30.6 g/dL (32.0-36.0); Mean Corpuscular Hemoglobin 28.4 pg (27.0-31.0); Mean Corpuscular Volume 92.9 fl (78.0-98.0); Mean Platelet Volume 8.7 fL (7.4-10.4); Platelet Count 454 10x3/uL (130-400); Red Blood Cell (RBC) Count 3.56 mill/uL (4.20-5.40); White Blood Cell (WBC) Count 7.6 10x3/uL (4.8-10.8)
[2023-01-13 07:15] LABS: #Basophils 0.1 thou/uL (0.0-0.2); #Eosinphils 0.2 thou/uL (0.0-0.7); #Lymphocytes 1.2 thou/uL (1.20-3.40); #Monocytes 0.9 thou/uL (0.11-0.59); #Neutrophils 5.3 thou/uL (1.40-6.50); %Basophils 1.6 % (0.0-1.0); %Eosinophils 2.3 % (0.0-10.0); %Lymphocytes 15.3 % (21.0-51.0); %Monocytes 11.4 % (0.0-10.0); %Neutrophils 69.3 % (42.0-75.0)
[2023-01-13] MEDS: Mycophenolate 250 MG CAP PO SCH ×2 (08:11→21:05)
[2023-01-13] MEDS: Carvedilol 3.125 MG TAB PO SCH ×2 (08:11→17:57)
[2023-01-13] MEDS: Fenofibrate Nanocrystallized 145 MG TAB PO SCH (08:11)
[2023-01-13] MEDS: Ferrous Sulfate 325 MG TAB PO SCH (08:11)
[2023-01-13] MEDS: Cholecalciferol 1,000 UNITS (25 MCG) TAB PO SCH (08:11)
[2023-01-13] MEDS: Sucralfate 1 GM TAB PO SCH ×2 (08:12→21:06)
[2023-01-13] MEDS: predniSONE 5 MG TAB PO SCH (08:12)
[2023-01-13] MEDS: Multivitamin W/ Minerals 1 TAB PO SCH (08:12)
[2023-01-13] MEDS: Magnesium Oxide 400 MG TAB PO SCH (08:12)
[2023-01-13] MEDS: Polyethylene Glycol 3350 17 GM Packet PO SCH (08:12)
[2023-01-13] MEDS: Levothyroxine Sodium 75 MCG TAB PO SCH (08:12)
[2023-01-13] MEDS: Escitalopram Oxalate 10 mg Tablet PO SCH (08:12)
[2023-01-13] MEDS ORDERED: DULoxetine 30 MG CAP PO SCH (14:00)
[2023-01-13] MEDS: DULoxetine 30 MG CAP PO SCH (21:05)
[2023-01-13] MEDS: Rosuvastatin 10 MG TAB PO SCH (21:06)
[2023-01-13] MEDS: traZODone HCl 50 MG TAB PO SCH (21:06)
[2023-01-14 05:21] LABS: INR-International Normal Ratio 2.2; Prothrombin Time 25.2 sec (12.0-14.7)
[2023-01-14] MEDS: HYDROcodone/Acetaminophen 5/325 mg Tablet PO PRN ×2 (06:59→15:27)
[2023-01-14 07:27] VITALS: BP 118/79; TEMP 98.4
[2023-01-14] MEDS: Sucralfate 1 GM TAB PO SCH (08:22)
[2023-01-14] MEDS: Multivitamin W/ Minerals 1 TAB PO SCH (08:22)
[2023-01-14] MEDS: Fenofibrate Nanocrystallized 145 MG TAB PO SCH (08:22)
[2023-01-14] MEDS: Magnesium Oxide 400 MG TAB PO SCH (08:22)
[2023-01-14] MEDS: Levothyroxine Sodium 75 MCG TAB PO SCH (08:23)
[2023-01-14] MEDS: DULoxetine 30 MG CAP PO SCH (08:23)
[2023-01-14] MEDS: Cholecalciferol 1,000 UNITS (25 MCG) TAB PO SCH (08:23)
[2023-01-14] MEDS: Carvedilol 3.125 MG TAB PO SCH ×2 (08:23→17:16)
[2023-01-14] MEDS: predniSONE 5 MG TAB PO SCH (08:23)
[2023-01-14] MEDS: Escitalopram Oxalate 10 mg Tablet PO SCH (08:23)
[2023-01-14] MEDS: Mycophenolate 250 MG CAP PO SCH (08:24)
[2023-01-14] MEDS: Ferrous Sulfate 325 MG TAB PO SCH (08:24)
[2023-01-14] MEDS: Polyethylene Glycol 3350 17 GM Packet PO SCH (08:24)
[2023-01-14 11:08] LABS: %Basophils 1.2 % (0.0-1.0); %Monocytes 8.4 % (0.0-10.0); %Neutrophils 74.4 % (42.0-75.0); Hematocrit 31.1 % (36.0-47.0); Hemoglobin 9.5 g/dL (12.0-16.0); Mean Corpuscular HGB CONC 30.5 g/dL (32.0-36.0); Mean Corpuscular Hemoglobin 28.3 pg (27.0-31.0); Mean Corpuscular Volume 92.7 fl (78.0-98.0); Mean Platelet Volume 8.1 fL (7.4-10.4); Platelet Count 488 10x3/uL (130-400); Red Blood Cell (RBC) Count 3.35 mill/uL (4.20-5.40); White Blood Cell (WBC) Count 7.8 10x3/uL (4.8-10.8)
[2023-01-14 11:09] LABS: #Basophils 0.1 thou/uL (0.0-0.2); #Eosinphils 0.2 thou/uL (0.0-0.7); #Lymphocytes 1.1 thou/uL (1.20-3.40); #Monocytes 0.7 thou/uL (0.11-0.59); #Neutrophils 5.8 thou/uL (1.40-6.50)
[2023-01-14 11:25] LABS: Carbon Dioxide 24 mmol/L (23-31); Chloride 100 mmol/L (98-107); Potassium 3.6 mmol/L (3.5-5.1); Sodium 135 mmol/L (136-145)
[2023-01-14 11:26] LABS: ALT (SGPT) 9 U/L (8-55); AST (SGOT) 17 U/L (5-34); Albumin 3.3 g/dL (3.4-4.8); Alkaline Phosphatase 96 U/L (40-110); Anion Gap 15 mmol/L (10-20); BUN (Urea Nitrogen) 27 mg/dL (9.8-20.1); Bilirubin, Total 0.4 mg/dL (0.2-1.2); Calc. Creatinine Clearance 33 mL/min (70-130); Calcium 10.2 mg/dL (7.6-10.4); Estimated GFR 39; Globulin 3.1 g/dL (2.4-3.5); Glucose 93 mg/dL (80-115); Protein, Total 6.4 g/dL (5.8-8.1)
== END 2023-01-14 17:55 | disposition short-term general hospital (02) | DRG 948 ==
LOC: UNDOADMIN 13:57 → MADMS 13:57
PROVIDERS: ADMIT Internal Medicine; ATTEND Family Medicine
DX: R53.1 Weakness (principal); Z94.0 Kidney transplant status; K92.2 Gastrointestinal hemorrhage, unspecified; I25.10 Atherosclerotic heart disease of native coronary artery without angina pectoris; I10 Essential (primary) hypertension; E78.5 Hyperlipidemia, unspecified; E03.9 Hypothyroidism, unspecified; F41.9 Anxiety disorder, unspecified; F32.A Depression, unspecified; K59.00 Constipation, unspecified; D64.9 Anemia, unspecified; Z88.1 Allergy status to other antibiotic agents; Z79.01 Long term (current) use of anticoagulants; Z79.899 Other long term (current) drug therapy; Z95.2 Presence of prosthetic heart valve; Z89.511 Acquired absence of right leg below knee; Z87.891 Personal history of nicotine dependence; Z89.432 Acquired absence of left foot
CPT/HCPCS: 36415; 80053; 82274; 85014; 85018; 85025; 85049; 85610; J7512; J7517

== ENCOUNTER 2023-01-20 11:30 | Inpatient (IN) | payer MEDICARE ==
[2023-01-20] MEDS ORDERED: HYDROcodone/Acetaminophen 5/325 mg Tablet PO PRN (18:31)
[2023-01-20] MEDS ORDERED: Loperamide HCl 2 MG CAP PO PRN (18:33)
[2023-01-20] MEDS ORDERED: Warfarin Sodium 5 MG TAB PO SCH (18:45)
[2023-01-20] MEDS: traZODone HCl 50 MG TAB PO SCH (19:53)
[2023-01-20] MEDS: HYDROcodone/Acetaminophen 5/325 mg Tablet PO PRN (19:53)
[2023-01-20] MEDS: cycloSPORINE, Modified 100 MG CAP PO SCH (19:54)
[2023-01-20] MEDS: Rosuvastatin 10 MG TAB PO SCH (19:54)
[2023-01-20] MEDS: DULoxetine 30 MG CAP PO SCH (19:54)
[2023-01-20] MEDS: Mycophenolate 250 MG CAP PO SCH (19:54)
[2023-01-21] MEDS: HYDROcodone/Acetaminophen 5/325 mg Tablet PO PRN ×3 (05:40→22:05)
[2023-01-21] MEDS: Levothyroxine Sodium 75 MCG TAB PO SCH (05:41)
[2023-01-21 05:50] LABS: INR-International Normal Ratio 1.4; Prothrombin Time 17.4 sec (12.0-14.7)
[2023-01-21] MEDS: cycloSPORINE, Modified 100 MG CAP PO SCH ×2 (09:46→20:47)
[2023-01-21] MEDS: predniSONE 5 MG TAB PO SCH (09:47)
[2023-01-21] MEDS: Escitalopram Oxalate 10 mg Tablet PO SCH (09:47)
[2023-01-21] MEDS: Ferrous Sulfate 325 MG TAB PO SCH (09:47)
[2023-01-21] MEDS: Fenofibrate Nanocrystallized 145 MG TAB PO SCH (09:47)
[2023-01-21] MEDS: Multivitamin W/ Minerals 1 TAB PO SCH (09:47)
[2023-01-21] MEDS: Mycophenolate 250 MG CAP PO SCH ×2 (09:47→20:46)
[2023-01-21] MEDS: DULoxetine 30 MG CAP PO SCH ×2 (09:49→20:47)
[2023-01-21] MEDS ORDERED: Warfarin Sodium 5 MG TAB PO SCH (17:00)
[2023-01-21] MEDS: traZODone HCl 50 MG TAB PO SCH (20:47)
[2023-01-21] MEDS: Rosuvastatin 10 MG TAB PO SCH (20:47)
[2023-01-22] MEDS: Levothyroxine Sodium 75 MCG TAB PO SCH (05:10)
[2023-01-22 05:24] LABS: Prothrombin Time 23.4 sec (12.0-14.7)
[2023-01-22 05:27] LABS: Hematocrit 25.5 % (36.0-47.0); Platelet Count 434 10x3/uL (130-400)
[2023-01-22] MEDS: HYDROcodone/Acetaminophen 5/325 mg Tablet PO PRN ×3 (07:01→20:44)
[2023-01-22] MEDS: Fenofibrate Nanocrystallized 145 MG TAB PO SCH (08:33)
[2023-01-22] MEDS: Escitalopram Oxalate 10 mg Tablet PO SCH (08:33)
[2023-01-22] MEDS: Ferrous Sulfate 325 MG TAB PO SCH (08:33)
[2023-01-22] MEDS: Mycophenolate 250 MG CAP PO SCH ×2 (08:33→20:45)
[2023-01-22] MEDS: predniSONE 5 MG TAB PO SCH (08:33)
[2023-01-22] MEDS: Multivitamin W/ Minerals 1 TAB PO SCH (08:33)
[2023-01-22] MEDS: DULoxetine 30 MG CAP PO SCH ×2 (08:34→20:45)
[2023-01-22] MEDS: cycloSPORINE, Modified 100 MG CAP PO SCH ×2 (08:37→20:45)
[2023-01-22] MEDS ORDERED: Warfarin Sodium 2.5 MG TAB PO SCH (17:00)
[2023-01-22] MEDS: Rosuvastatin 10 MG TAB PO SCH (20:44)
[2023-01-22] MEDS: traZODone HCl 50 MG TAB PO SCH (20:45)
[2023-01-23] MEDS: Levothyroxine Sodium 75 MCG TAB PO SCH (05:10)
[2023-01-23] MEDS: HYDROcodone/Acetaminophen 5/325 mg Tablet PO PRN ×3 (05:12→18:21)
[2023-01-23 05:36] LABS: INR-International Normal Ratio 2.6; Prothrombin Time 28.7 sec (12.0-14.7)
[2023-01-23] MEDS: Fenofibrate Nanocrystallized 145 MG TAB PO SCH (09:50)
[2023-01-23] MEDS: DULoxetine 30 MG CAP PO SCH ×2 (09:50→20:24)
[2023-01-23] MEDS: Multivitamin W/ Minerals 1 TAB PO SCH (09:50)
[2023-01-23] MEDS: predniSONE 5 MG TAB PO SCH (09:50)
[2023-01-23] MEDS: Escitalopram Oxalate 10 mg Tablet PO SCH (09:50)
[2023-01-23] MEDS: cycloSPORINE, Modified 100 MG CAP PO SCH ×2 (09:50→20:24)
[2023-01-23] MEDS: Mycophenolate 250 MG CAP PO SCH ×2 (09:50→20:24)
[2023-01-23] MEDS: Ferrous Sulfate 325 MG TAB PO SCH (09:51)
[2023-01-23] MEDS: Warfarin Sodium 2.5 MG TAB PO SCH (16:55)
[2023-01-23] MEDS: traZODone HCl 50 MG TAB PO SCH (20:24)
[2023-01-23] MEDS: Rosuvastatin 10 MG TAB PO SCH (20:24)
[2023-01-24] MEDS: HYDROcodone/Acetaminophen 5/325 mg Tablet PO PRN ×3 (05:26→21:39)
[2023-01-24] MEDS: Levothyroxine Sodium 75 MCG TAB PO SCH (05:27)
[2023-01-24 05:37] LABS: INR-International Normal Ratio 2.4; Prothrombin Time 27.2 sec (12.0-14.7)
[2023-01-24] MEDS: Escitalopram Oxalate 10 mg Tablet PO SCH (08:15)
[2023-01-24] MEDS: Ferrous Sulfate 325 MG TAB PO SCH (08:15)
[2023-01-24] MEDS: Mycophenolate 250 MG CAP PO SCH ×2 (08:15→20:03)
[2023-01-24] MEDS: DULoxetine 30 MG CAP PO SCH ×2 (08:15→20:03)
[2023-01-24] MEDS: Multivitamin W/ Minerals 1 TAB PO SCH (08:15)
[2023-01-24] MEDS: cycloSPORINE, Modified 100 MG CAP PO SCH ×2 (08:15→20:03)
[2023-01-24] MEDS: Fenofibrate Nanocrystallized 145 MG TAB PO SCH (08:15)
[2023-01-24] MEDS: predniSONE 5 MG TAB PO SCH (08:15)
[2023-01-24] MEDS: Warfarin Sodium 2.5 MG TAB PO SCH (17:16)
[2023-01-24] MEDS: traZODone HCl 50 MG TAB PO SCH (20:03)
[2023-01-24] MEDS: Rosuvastatin 10 MG TAB PO SCH (20:03)
[2023-01-25] MEDS: HYDROcodone/Acetaminophen 5/325 mg Tablet PO PRN ×2 (05:02→16:08)
[2023-01-25] MEDS: Levothyroxine Sodium 75 MCG TAB PO SCH (05:02)
[2023-01-25 05:34] LABS: INR-International Normal Ratio 2.3; Prothrombin Time 26.5 sec (12.0-14.7)
[2023-01-25] MEDS: predniSONE 5 MG TAB PO SCH (09:34)
[2023-01-25] MEDS: Mycophenolate 250 MG CAP PO SCH ×2 (09:34→20:21)
[2023-01-25] MEDS: cycloSPORINE, Modified 100 MG CAP PO SCH ×2 (09:34→20:21)
[2023-01-25] MEDS: Escitalopram Oxalate 10 mg Tablet PO SCH (09:34)
[2023-01-25] MEDS: Multivitamin W/ Minerals 1 TAB PO SCH (09:34)
[2023-01-25] MEDS: Fenofibrate Nanocrystallized 145 MG TAB PO SCH (09:34)
[2023-01-25] MEDS: DULoxetine 30 MG CAP PO SCH ×2 (09:34→20:21)
[2023-01-25] MEDS: Ferrous Sulfate 325 MG TAB PO SCH (09:35)
[2023-01-25] MEDS: Warfarin Sodium 2.5 MG TAB PO SCH (17:05)
[2023-01-25] MEDS: traZODone HCl 50 MG TAB PO SCH (20:21)
[2023-01-25] MEDS: Rosuvastatin 10 MG TAB PO SCH (20:21)
[2023-01-26] MEDS: HYDROcodone/Acetaminophen 5/325 mg Tablet PO PRN ×3 (03:01→20:23)
[2023-01-26] MEDS: Levothyroxine Sodium 75 MCG TAB PO SCH (05:28)
[2023-01-26 05:46] LABS: INR-International Normal Ratio 2.4; Prothrombin Time 27.2 sec (12.0-14.7)
[2023-01-26] MEDS: predniSONE 5 MG TAB PO SCH (08:50)
[2023-01-26] MEDS: Ferrous Sulfate 325 MG TAB PO SCH (08:50)
[2023-01-26] MEDS: Multivitamin W/ Minerals 1 TAB PO SCH (08:50)
[2023-01-26] MEDS: Mycophenolate 250 MG CAP PO SCH ×2 (08:50→20:24)
[2023-01-26] MEDS: Escitalopram Oxalate 10 mg Tablet PO SCH (08:50)
[2023-01-26] MEDS: Fenofibrate Nanocrystallized 145 MG TAB PO SCH (08:50)
[2023-01-26] MEDS: DULoxetine 30 MG CAP PO SCH ×2 (08:50→20:24)
[2023-01-26] MEDS: cycloSPORINE, Modified 100 MG CAP PO SCH ×2 (08:50→20:24)
[2023-01-26] MEDS: Warfarin Sodium 2.5 MG TAB PO SCH (17:34)
[2023-01-26] MEDS: Rosuvastatin 10 MG TAB PO SCH (20:24)
[2023-01-26] MEDS: traZODone HCl 50 MG TAB PO SCH (20:24)
[2023-01-27 05:20] LABS: INR-International Normal Ratio 2.3
[2023-01-27] MEDS: HYDROcodone/Acetaminophen 5/325 mg Tablet PO PRN ×3 (05:37→20:04)
[2023-01-27] MEDS: Levothyroxine Sodium 75 MCG TAB PO SCH (05:37)
[2023-01-27] MEDS: Ferrous Sulfate 325 MG TAB PO SCH (08:28)
[2023-01-27] MEDS: Fenofibrate Nanocrystallized 145 MG TAB PO SCH (08:28)
[2023-01-27] MEDS: Escitalopram Oxalate 10 mg Tablet PO SCH (08:28)
[2023-01-27] MEDS: Mycophenolate 250 MG CAP PO SCH ×2 (08:28→20:05)
[2023-01-27] MEDS: predniSONE 5 MG TAB PO SCH (08:29)
[2023-01-27] MEDS: cycloSPORINE, Modified 100 MG CAP PO SCH ×2 (08:29→20:05)
[2023-01-27] MEDS: Multivitamin W/ Minerals 1 TAB PO SCH (08:29)
[2023-01-27] MEDS: DULoxetine 30 MG CAP PO SCH ×2 (08:29→20:05)
[2023-01-27] MEDS: Warfarin Sodium 2.5 MG TAB PO SCH (17:14)
[2023-01-27] MEDS: Rosuvastatin 10 MG TAB PO SCH (20:05)
[2023-01-27] MEDS: traZODone HCl 50 MG TAB PO SCH (20:05)
[2023-01-28 05:21] LABS: INR-International Normal Ratio 2.2; Prothrombin Time 25.5 sec (12.0-14.7)
[2023-01-28] MEDS: HYDROcodone/Acetaminophen 5/325 mg Tablet PO PRN ×3 (05:25→22:54)
[2023-01-28] MEDS: Levothyroxine Sodium 75 MCG TAB PO SCH (05:25)
[2023-01-28] MEDS: cycloSPORINE, Modified 100 MG CAP PO SCH ×2 (08:58→20:17)
[2023-01-28] MEDS: Multivitamin W/ Minerals 1 TAB PO SCH (08:58)
[2023-01-28] MEDS: Mycophenolate 250 MG CAP PO SCH ×2 (08:58→20:17)
[2023-01-28] MEDS: predniSONE 5 MG TAB PO SCH (08:58)
[2023-01-28] MEDS: DULoxetine 30 MG CAP PO SCH ×2 (08:59→20:19)
[2023-01-28] MEDS: Fenofibrate Nanocrystallized 145 MG TAB PO SCH (08:59)
[2023-01-28] MEDS: Ferrous Sulfate 325 MG TAB PO SCH (08:59)
[2023-01-28] MEDS: Escitalopram Oxalate 10 mg Tablet PO SCH (08:59)
[2023-01-28] MEDS: Polyethylene Glycol 3350 17 GM Packet PO PRN (12:37)
[2023-01-28] MEDS: Senokot S 8.6-50 MG TAB PO PRN (12:37)
[2023-01-28] MEDS: Warfarin Sodium 2.5 MG TAB PO SCH (17:12)
[2023-01-28] MEDS: traZODone HCl 50 MG TAB PO SCH (20:17)
[2023-01-28] MEDS: Rosuvastatin 10 MG TAB PO SCH (20:17)
[2023-01-29 05:15] LABS: INR-International Normal Ratio 2.2; Prothrombin Time 25.4 sec (12.0-14.7)
[2023-01-29] MEDS: HYDROcodone/Acetaminophen 5/325 mg Tablet PO PRN ×3 (05:29→20:56)
[2023-01-29] MEDS: Levothyroxine Sodium 75 MCG TAB PO SCH (05:30)
[2023-01-29] MEDS: DULoxetine 30 MG CAP PO SCH ×2 (09:06→20:53)
[2023-01-29] MEDS: cycloSPORINE, Modified 100 MG CAP PO SCH ×2 (09:06→20:54)
[2023-01-29] MEDS: predniSONE 5 MG TAB PO SCH (09:06)
[2023-01-29] MEDS: Multivitamin W/ Minerals 1 TAB PO SCH (09:06)
[2023-01-29] MEDS: Escitalopram Oxalate 10 mg Tablet PO SCH (09:06)
[2023-01-29] MEDS: Fenofibrate Nanocrystallized 145 MG TAB PO SCH (09:06)
[2023-01-29] MEDS: Ferrous Sulfate 325 MG TAB PO SCH (09:06)
[2023-01-29] MEDS: Mycophenolate 250 MG CAP PO SCH ×2 (09:07→20:53)
[2023-01-29] MEDS: Senokot S 8.6-50 MG TAB PO PRN (09:10)
[2023-01-29 10:46] VITALS: BMI 18.5
[2023-01-29] MEDS: Warfarin Sodium 2.5 MG TAB PO SCH (17:07)
[2023-01-29] MEDS: Rosuvastatin 10 MG TAB PO SCH (20:53)
[2023-01-29] MEDS: traZODone HCl 50 MG TAB PO SCH (20:53)
[2023-01-30 05:15] LABS: Hematocrit 28.9 % (36.0-47.0); Platelet Count 437 10x3/uL (130-400)
[2023-01-30 05:22] LABS: INR-International Normal Ratio 2.2; Prothrombin Time 25.4 sec (12.0-14.7)
[2023-01-30] MEDS: Levothyroxine Sodium 75 MCG TAB PO SCH (05:33)
[2023-01-30] MEDS: HYDROcodone/Acetaminophen 5/325 mg Tablet PO PRN ×3 (05:33→22:41)
[2023-01-30] MEDS: Mycophenolate 250 MG CAP PO SCH ×2 (09:43→20:50)
[2023-01-30] MEDS: cycloSPORINE, Modified 100 MG CAP PO SCH ×2 (09:45→20:50)
[2023-01-30] MEDS: DULoxetine 30 MG CAP PO SCH ×2 (09:46→20:50)
[2023-01-30] MEDS: Escitalopram Oxalate 10 mg Tablet PO SCH (09:46)
[2023-01-30] MEDS: Ferrous Sulfate 325 MG TAB PO SCH (09:46)
[2023-01-30] MEDS: Fenofibrate Nanocrystallized 145 MG TAB PO SCH (09:46)
[2023-01-30] MEDS: predniSONE 5 MG TAB PO SCH (09:46)
[2023-01-30] MEDS: Multivitamin W/ Minerals 1 TAB PO SCH (09:46)
[2023-01-30] MEDS ORDERED: WARFARIN IVPB PRN (13:33)
[2023-01-30] MEDS ORDERED: WARFARIN PO PRN (14:00)
[2023-01-30] MEDS: Warfarin Sodium 2.5 MG TAB PO SCH (17:21)
[2023-01-30] MEDS: traZODone HCl 50 MG TAB PO SCH (20:49)
[2023-01-30] MEDS: Rosuvastatin 10 MG TAB PO SCH (20:50)
[2023-01-31] MEDS ORDERED: Mag-Al Plus 1200 MG/1200 MG/120 MG/30 ML UDCUP PO PRN (02:06)
[2023-01-31] MEDS: HYDROcodone/Acetaminophen 5/325 mg Tablet PO PRN ×3 (05:08→21:59)
[2023-01-31] MEDS: Levothyroxine Sodium 75 MCG TAB PO SCH (05:09)
[2023-01-31 05:22] LABS: INR-International Normal Ratio 2.6
[2023-01-31] MEDS ORDERED: HYDROcodone/Acetaminophen 5/325 mg Tablet PO PRN (08:01)
[2023-01-31] MEDS: Fenofibrate Nanocrystallized 145 MG TAB PO SCH (08:56)
[2023-01-31] MEDS: cycloSPORINE, Modified 100 MG CAP PO SCH ×3 (08:56→22:59)
[2023-01-31] MEDS: DULoxetine 30 MG CAP PO SCH ×3 (08:56→22:59)
[2023-01-31] MEDS: Ferrous Sulfate 325 MG TAB PO SCH (08:56)
[2023-01-31] MEDS: Mycophenolate 250 MG CAP PO SCH ×3 (08:56→22:58)
[2023-01-31] MEDS: Multivitamin W/ Minerals 1 TAB PO SCH (08:57)
[2023-01-31] MEDS: predniSONE 5 MG TAB PO SCH (08:57)
[2023-01-31] MEDS: Escitalopram Oxalate 10 mg Tablet PO SCH (08:57)
[2023-01-31] MEDS: Warfarin Sodium 2.5 MG TAB PO SCH (17:17)
[2023-01-31] MEDS: Rosuvastatin 10 MG TAB PO SCH ×2 (21:50→23:00)
[2023-01-31] MEDS: traZODone HCl 50 MG TAB PO SCH (21:59)
[2023-02-01 05:48] LABS: INR-International Normal Ratio 2.3; Prothrombin Time 26.2 sec (12.0-14.7)
[2023-02-01] MEDS: Levothyroxine Sodium 75 MCG TAB PO SCH (05:59)
[2023-02-01] MEDS: HYDROcodone/Acetaminophen 5/325 mg Tablet PO PRN ×2 (09:09→16:58)
[2023-02-01] MEDS: cycloSPORINE, Modified 100 MG CAP PO SCH ×2 (09:10→21:05)
[2023-02-01] MEDS: predniSONE 5 MG TAB PO SCH (09:10)
[2023-02-01] MEDS: Fenofibrate Nanocrystallized 145 MG TAB PO SCH (09:10)
[2023-02-01] MEDS: DULoxetine 30 MG CAP PO SCH ×2 (09:10→21:04)
[2023-02-01] MEDS: Multivitamin W/ Minerals 1 TAB PO SCH (09:11)
[2023-02-01] MEDS: Ferrous Sulfate 325 MG TAB PO SCH (09:11)
[2023-02-01] MEDS: Escitalopram Oxalate 10 mg Tablet PO SCH (09:11)
[2023-02-01] MEDS: Mycophenolate 250 MG CAP PO SCH ×2 (09:11→21:03)
[2023-02-01] MEDS: Warfarin Sodium 2.5 MG TAB PO SCH (16:53)
[2023-02-01] MEDS: Rosuvastatin 10 MG TAB PO SCH (21:03)
[2023-02-01] MEDS: traZODone HCl 50 MG TAB PO SCH (21:04)
[2023-02-02] MEDS: Levothyroxine Sodium 75 MCG TAB PO SCH (05:02)
[2023-02-02] MEDS: HYDROcodone/Acetaminophen 5/325 mg Tablet PO PRN ×3 (05:02→17:36)
[2023-02-02 05:32] LABS: INR-International Normal Ratio 2.6; Prothrombin Time 29.3 sec (12.0-14.7)
[2023-02-02] MEDS: Mycophenolate 250 MG CAP PO SCH ×2 (08:52→21:35)
[2023-02-02] MEDS: predniSONE 5 MG TAB PO SCH (08:53)
[2023-02-02] MEDS: cycloSPORINE, Modified 100 MG CAP PO SCH ×2 (08:53→21:35)
[2023-02-02] MEDS: Escitalopram Oxalate 10 mg Tablet PO SCH (08:53)
[2023-02-02] MEDS: DULoxetine 30 MG CAP PO SCH ×2 (08:53→21:35)
[2023-02-02] MEDS: Ferrous Sulfate 325 MG TAB PO SCH (08:53)
[2023-02-02] MEDS: Fenofibrate Nanocrystallized 145 MG TAB PO SCH (08:53)
[2023-02-02] MEDS: Multivitamin W/ Minerals 1 TAB PO SCH (08:53)
[2023-02-02] MEDS: Polyethylene Glycol 3350 17 GM Packet PO PRN (11:22)
[2023-02-02] MEDS: Warfarin Sodium 2.5 MG TAB PO SCH (17:37)
[2023-02-02] MEDS: Rosuvastatin 10 MG TAB PO SCH (21:36)
[2023-02-02] MEDS: traZODone HCl 50 MG TAB PO SCH (21:36)
[2023-02-02] MEDS: Senokot S 8.6-50 MG TAB PO PRN (21:36)
[2023-02-03] MEDS: HYDROcodone/Acetaminophen 5/325 mg Tablet PO PRN ×5 (00:08→23:50)
[2023-02-03 05:39] LABS: INR-International Normal Ratio 2.7; Prothrombin Time 30.3 sec (12.0-14.7)
[2023-02-03] MEDS: Levothyroxine Sodium 75 MCG TAB PO SCH (06:09)
[2023-02-03] MEDS: Fenofibrate Nanocrystallized 145 MG TAB PO SCH (08:13)
[2023-02-03] MEDS: Escitalopram Oxalate 10 mg Tablet PO SCH (08:13)
[2023-02-03] MEDS: Multivitamin W/ Minerals 1 TAB PO SCH (08:13)
[2023-02-03] MEDS: DULoxetine 30 MG CAP PO SCH ×2 (08:13→21:15)
[2023-02-03] MEDS: predniSONE 5 MG TAB PO SCH (08:13)
[2023-02-03] MEDS: Ferrous Sulfate 325 MG TAB PO SCH (08:13)
[2023-02-03] MEDS: Mycophenolate 250 MG CAP PO SCH ×2 (08:13→21:15)
[2023-02-03] MEDS: cycloSPORINE, Modified 100 MG CAP PO SCH ×2 (08:13→21:16)
[2023-02-03] MEDS: Polyethylene Glycol 3350 17 GM Packet PO PRN (08:14)
[2023-02-03] MEDS: Senokot S 8.6-50 MG TAB PO PRN (14:44)
[2023-02-03] MEDS: Warfarin Sodium 2.5 MG TAB PO SCH (17:22)
[2023-02-03] MEDS: traZODone HCl 50 MG TAB PO SCH (21:15)
[2023-02-03] MEDS: Rosuvastatin 10 MG TAB PO SCH (21:15)
[2023-02-04 05:31] LABS: INR-International Normal Ratio 2.6; Prothrombin Time 29.2 sec (12.0-14.7)
[2023-02-04] MEDS: Levothyroxine Sodium 75 MCG TAB PO SCH (05:54)
[2023-02-04] MEDS: HYDROcodone/Acetaminophen 5/325 mg Tablet PO PRN (05:54)
[2023-02-04] MEDS: cycloSPORINE, Modified 100 MG CAP PO SCH (08:11)
[2023-02-04] MEDS: Multivitamin W/ Minerals 1 TAB PO SCH (08:11)
[2023-02-04] MEDS: predniSONE 5 MG TAB PO SCH (08:11)
[2023-02-04] MEDS: Fenofibrate Nanocrystallized 145 MG TAB PO SCH (08:11)
[2023-02-04] MEDS: Escitalopram Oxalate 10 mg Tablet PO SCH (08:11)
[2023-02-04] MEDS: Mycophenolate 250 MG CAP PO SCH (08:11)
[2023-02-04] MEDS: Ferrous Sulfate 325 MG TAB PO SCH (08:12)
[2023-02-04] MEDS: DULoxetine 30 MG CAP PO SCH (08:12)
[2023-02-04 08:21] VITALS: BP 131/63; TEMP 98.4
== END 2023-02-04 13:41 | disposition home or self-care (01) | DRG 560 ==
LOC: MADMS 17:23
PROVIDERS: ADMIT Emergency Medicine; ATTEND Family Medicine
DX: Z47.81 Encounter for orthopedic aftercare following surgical amputation (principal); D62 Acute posthemorrhagic anemia; Z94.0 Kidney transplant status; R53.81 Other malaise; G89.18 Other acute postprocedural pain; I25.10 Atherosclerotic heart disease of native coronary artery without angina pectoris; I73.9 Peripheral vascular disease, unspecified; K64.9 Unspecified hemorrhoids; E03.9 Hypothyroidism, unspecified; M79.609 Pain in unspecified limb; Z95.2 Presence of prosthetic heart valve; Z89.512 Acquired absence of left leg below knee; Z88.1 Allergy status to other antibiotic agents; Z79.890 Hormone replacement therapy; Z79.899 Other long term (current) drug therapy; Z80.0 Family history of malignant neoplasm of digestive organs; Z95.5 Presence of coronary angioplasty implant and graft; Z79.01 Long term (current) use of anticoagulants; Z79.52 Long term (current) use of systemic steroids; Z89.611 Acquired absence of right leg above knee; Z85.048 Personal history of other malignant neoplasm of rectum, rectosigmoid junction, and anus; E78.5 Hyperlipidemia, unspecified; F41.9 Anxiety disorder, unspecified; F32.A Depression, unspecified; N18.9 Chronic kidney disease, unspecified; I12.9 Hypertensive chronic kidney disease with stage 1 through stage 4 chronic kidney disease, or unspecified chronic kidney disease; Z87.891 Personal history of nicotine dependence
CPT/HCPCS: 36415; 85014; 85018; 85049; 85610; J7502; J7512; J7517